=== PATIENT | male | born 1985 | race Two or more races ===

== ENCOUNTER 2021-07-01 16:51 | Inpatient (IN) | payer OTHER ==
[~2021-07-01] VITALS: Ht 172.7 cm; Wt 52.6 kg
[2021-07-01] MEDS: HEPARIN SODIUM, PORCINE 5000 UNITS/1 ML VIAL SQ SCH ×3 (09:00→23:35)
[2021-07-01 17:20] LABS: BASOPHILS # (AUTO) 0.1 K/uL (0.0-0.2); BASOPHILS % (AUTO) 0.6 % (0.0-2.0); EOSINOPHILS % (AUTO) 0.6 % (0.0-6.0); HEMATOCRIT 31 % (39-51); HEMOGLOBIN 9.6 g/dL (13.5-17.5); LYMPHOCYTES # (AUTO) 1.3 K/uL (0.8-4.8); LYMPHOCYTES % (AUTO) 6.7 % (20.0-44.0); MEAN CORPUSCULAR HGB CONC 31 g/dl (31.0-36.0); MEAN CORPUSCULAR VOLUME 73 fL (80-96); MONOCYTES # (AUTO) 3.1 K/uL (0.1-1.30); MONOCYTES % (AUTO) 16.1 % (2.0-12.0); NEUTROPHILS # (AUTO) 14.4 K/uL (1.8-8.9); PLATELET COUNT (AUTO) 684 K/uL (150-450); RED BLOOD CELL COUNT(AUTO) 4.28 MIL/uL (4.5-6.0)
--- NOTE | 2021-07-01 17:29 | NUR ---
[id number] FOR TACHYCARDIA TACHYPNEA 20 MINS ON DIALYSIS. ON TRACH, CONNECTED TO THE MONITOR AND PULSE OX. KEPT COMFORTABLE, WILL CONTINUE TO MONITOR ACCORDINGLY.
[2021-07-01] MEDS ORDERED: IV NS 0.9% 1,000 ML BAG IV ONE (17:30)
[2021-07-01 17:36] LABS: CARBON DIOXIDE 22 mmol/L (21-32); CHLORIDE 101 mmol/L (98-107); GLUCOSE 104 mg/dL (74-106); POTASSIUM 4.4 mmol/L (3.5-5.1); SODIUM SERUM 140 mmol/L (136-145); UREA NITROGEN, BLOOD 72 mg/dL (7-18)
[2021-07-01 17:37] LABS: CREATININE 8.1 mg/dL (0.6-1.3)
[2021-07-01] MEDS ORDERED: VALP250S4 GT (17:37)
[2021-07-01] MEDS ORDERED: GUAN1TAB GT (17:37)
[2021-07-01] MEDS ORDERED: DOCU50LI GT (17:37)
[2021-07-01] MEDS ORDERED: SEVE0.8P GT (17:37)
[2021-07-01] MEDS ORDERED: CHLO473M5 MM (17:37)
[2021-07-01] MEDS ORDERED: PANT40SU2 GT (17:37)
[2021-07-01] MEDS ORDERED: QUET25TA GT (17:37)
[2021-07-01] MEDS ORDERED: PROP20TA7 GT (17:37)
[2021-07-01] MEDS ORDERED: NUT.237L67 GT (17:37)
[2021-07-01] MEDS ORDERED: MENT71OI2 TP (17:37)
[2021-07-01] MEDS ORDERED: ACET-868 GT (17:37)
[2021-07-01 17:42] LABS: ALANINE AMINOTRANSFERASE 18 U/L (12-78); ALBUMIN 2.6 g/dL (3.4-5.0); ALKALINE PHOSPHATASE 137 U/L (46-116); ASPARTATE AMINOTRANSFERASE 31 U/L (15-37); BILIRUBIN,DIRECT 0.2 mg/dL (0.0-0.2); BILIRUBIN,TOTAL 0.5 mg/dL (0.2-1.0); TOTAL PROTEIN, SERUM 9.7 g/dL (6.4-8.2)
--- NOTE | 2021-07-01 17:44 | NUR ---
RT PT CAME IN VIA EMS BEING BAGGED FROM HEMODIALYSIS FOR TACHYCARDIA, TACHYPNEA, SOB PER REPORT, PT TRACHED SHILEY 8 DCT WILL HAS SUTURES CUFF INFLATED PLACED ON [facility] VENT AC 20 500 +5 40% VENT PLUGGED IN RED OUTLET BAG AND MASK AT [facility] WILL CONT TO MONITOR Addendum: 07/01/21 at 1748 by JANET OROZCO RT Amended: Links added.
[2021-07-01] MEDS ORDERED: PIPERACILLIN /TAZOBACTAM 3.375 G in IV D5W 50 ML IV ONE (18:00)
[2021-07-01] MEDS ORDERED: VANCOMYCIN 1 GM in IV D5W 250 ML IV ONE (18:00)
[2021-07-01 18:29] LABS: BILIRUBIN,URINE Negative (NEGATIVE); COLOR,URINE YELLOW (YELLOW); LEUKOCYTE ESTERASE ,URINE Trace (NEGATIVE); NITRITE, URINE Negative (NEGATIVE); PROTEIN,URINE 100 mg/dl (NEGATIVE); UGLUCOSE Negative (NEGATIVE); UROBILINOGEN,URINE 0.2 EU/dL (0.2)
[2021-07-01 18:30] LABS: BACTERIA,URINE Few /HPF (None Seen); SQUAMOUS EPITHELIAL CELL,UR Few /HPF (None Seen)
[2021-07-01 18:43] LABS: BAND % (MANUAL) 2 % (0.0-5.0); LYMPHOCYTES % (MANUAL) 4 % (16-48); MONOCYTES % (MANUAL) 11 % (0-11.0); NEUTROPHILS % (MANUAL) 83 (42-76)
[2021-07-01] MEDS ORDERED: VANCOMYCIN HCL 1.25 GM in IV D5W 260 ML IV SCH (19:00)
[2021-07-01] MEDS ORDERED: DEXTROSE 50%-WATER 50 ML DISP.SYRIN IV PRN (19:00)
[2021-07-01] MEDS ORDERED: ONDANSETRON HCL/PF 4 MG/2 ML VIAL IVP PRN (19:00)
[2021-07-01] MEDS ORDERED: hydrALAZINE HCL IV 20 MG VIAL IV PRN (19:00)
[2021-07-01] MEDS ORDERED: ENOXAPARIN SODIUM 40 MG/0.4 ML DISP.SYRIN SQ SCH (19:00)
[2021-07-01] MEDS ORDERED: NEPRO VAN 237 ML CAN GT SCH (19:00)
--- NOTE | 2021-07-01 19:26 | NUR ---
ROOM 117-1
--- NOTE | 2021-07-01 19:45 | NUR ---
COVID SWAB SENT TO LAB
--- NOTE | 2021-07-01 20:09 | NUR ---
TAKEN TO CT
--- NOTE | 2021-07-01 20:22 | NUR ---
RN NOTES RECEIVED ER ADMISSION REPORT FROM IZABELLA GONZALEZ. ALL PERTINENT ADMISSION INFO REGARDING PT NOTED. WILL WAIT FOR PT TO BE TRANSFERRED TO UNIT AND ADDRESS NEEDS ACCORDINGLY. WHIZZER OPERATOR MADE AWARE.
--- NOTE | 2021-07-01 20:24 | NUR ---
report given to aiden stanley for napoleon
[2021-07-01 20:36] LABS: FERRITIN 273 ng/mL (8-388); IRON, SERUM 25 ug/dl (50-175)
[2021-07-01] MEDS ORDERED: GUANFACINE HCL 1 MG TABLET PO SCH (21:00)
--- NOTE | 2021-07-01 21:15 | NUR ---
CALLED BETHEL TO HAVE IMAGES READ
[2021-07-01] MEDS: BLOOD SUGAR DIAGNOSTIC 1 EACH STRIP IN SCH (22:00)
--- NOTE | 2021-07-01 22:34 | NUR ---
PATIENT BEING TRANSFERRED TO [facility] VIA ACLS AND RT
--- NOTE | 2021-07-01 22:38 | NUR ---
RN NOTES RECEIVED PT FROM ER VIA FAISALRJODI ACCOMPANIED BY 2 ER STAFF AND TRANSFERRED TO BED VIA 2 PERSON ASSIST. PT IS A/OX0; ON MECHANICAL VENT; SETTINGS PRESCRIBED WITH RESPIRATIONS EVEN AND UNLABORED. COMPREHENSIVE PHYSICAL ASSESSMENT AND PATIENT CARE DONE. CALL LIGHT WITHIN REACH, SAFETY MEASURES AND ISOLATION PRECAUTION IN PLACE, WILL CONTINUE MONITOR AND ASSESS THROUGHOUT THE SHIFT. WILL CARRY OUT MD ORDERS ACCORDINGLY. CSR TECHNICIAN MADE AWARE.
[2021-07-01 22:40] VITALS: BP 131/88
--- NOTE | 2021-07-01 22:40 | NUR ---
RN NOTES NOTED PT'S TEMP IS AT 100.1@2240 (INITIAL VS); PRN MEDICATION GIVEN AND COOLING MEASURES RENDERED. PHYS ASST MADE AWARE. WILL CONTINUE TO MONITOR AND ASSESS THROUGHOUT THE SHIFT.
[2021-07-01] MEDS: CHLORHEXIDINE GLUCONATE 15 ML UDC MM SCH (23:03)
[2021-07-01] MEDS: PROPRANOLOL HCL 10 MG TABLET GT SCH (23:04)
[2021-07-01] MEDS: ACETAMINOPHEN 325 MG TABLET PO PRN (23:07)
--- NOTE | 2021-07-01 23:15 | NUR ---
RN NOTES @2300 PT'S TEMP WENT DOWN TO 99.1. WILL CONTINUE COOLING MEASURES AND MONITOR THROUGHOUT THE SHIFT.
[2021-07-01] MEDS: INSULIN REGULAR, HUMAN 100 UNIT/ML 3 ML VIAL SQ PRN (23:21)
--- NOTE | 2021-07-01 23:35 | NUR ---
RN NOTES HEPARIN DUE @0900AM NO COVERAGE; AND ONE SCHEDULED @2100 GIVEN LATE DUE TO PT JUST CAME IN FOR ADMISSION. TRANSIT DRIVER MADE AWARE.
[2021-07-02] VITALS: BP 128/85
--- NOTE | 2021-07-02 00:10 | NUR ---
RN NOTES CALLED [facility] @[phone], SPOKE WITH AMBER STEINER FOR THE FOLLOWING, CODE STATUS: FULL CODE, FEEDING: NEPRO@40CC/HR. COVID SHOT VACCINATED, WAS PREVIOUSLY ADMITTED IN [facility]. ALSO TRID VERIFY IF PT HAD SHOTS FOR PNA AND FLU, SHE SAID SHE WILL CHECK AND SEND SOME MEDICAL RECORDS. FAX NUMBER PROVIDED. AWAITING FOR PT'S MEDICAL RECORDS. FRONT OFFICE ASSOCIATE MADE AWARE. WILL NOTIFY ALYSSA PATINO FOR PT'S DIET IN THE FACILITY AND SECURE ORDER. @0015 ALYSSA PATINO NOTIFIED REGARDING PT'S FEEDING DIET NEPRO 40CC/HR. AWAITING RESPONSE. WILL F/U IN THE MORNING.
[2021-07-02 03:29] LABS: BASOPHILS # (AUTO) 0.1 K/uL (0.0-0.2); EOSINOPHILS % (AUTO) 0.7 % (0.0-6.0); HEMATOCRIT 28 % (39-51); HEMOGLOBIN 8.8 g/dL (13.5-17.5); LYMPHOCYTES # (AUTO) 0.9 K/uL (0.8-4.8); LYMPHOCYTES % (AUTO) 6.3 % (20.0-44.0); MEAN CORPUSCULAR HGB CONC 32 g/dl (31.0-36.0); MEAN CORPUSCULAR VOLUME 73 fL (80-96); MONOCYTES # (AUTO) 2.6 K/uL (0.1-1.30); MONOCYTES % (AUTO) 17.4 % (2.0-12.0); NEUTROPHILS # (AUTO) 11.3 K/uL (1.8-8.9); NEUTROPHILS % (AUTO) 74.6 % (43.0-81.0); PLATELET COUNT (AUTO) 562 K/uL (150-450); WHITE BLOOD COUNT (AUTO) 15.1 K/uL (4.3-11.0)
[2021-07-02 03:43] LABS: ALBUMIN 2.3 g/dL (3.4-5.0); BILIRUBIN,TOTAL 0.5 mg/dL (0.2-1.0); CALCIUM, SERUM 8.5 mg/dL (8.5-10.1); MAGNESIUM 3.1 mg/dL (1.8-2.4); PHOSPHORUS 7.2 mg/dL (2.5-4.9); POTASSIUM 4.5 mmol/L (3.5-5.1); TOTAL PROTEIN, SERUM 8.6 g/dL (6.4-8.2)
[2021-07-02 03:48] LABS: CREATININE 8.9 mg/dL (0.6-1.3)
[2021-07-02 04:00] VITALS: BP 135/91
--- NOTE | 2021-07-02 04:00 | NUR ---
RN NOTES NO NOTED CHANGES IN PATIENT CONDITION AT THIS TIME; NO SIGNS OF ACUTE RESPIRATORY DISTRESS. AM PATIENT CARE RENDERED. PLATER APPRENTICE MADE AWARE. WILL CONTINUE TO MONITOR AND REASSESS FOR ANY CHANGES THROUGHOUT THE SHIFT.
[2021-07-02 04:18] LABS: BAND % (MANUAL) 2 % (0.0-5.0); LYMPHOCYTES % (MANUAL) 7 % (16-48); METAMYELOCYTES % 1 % (0-0); MONOCYTES % (MANUAL) 10 % (0-11.0); NEUTROPHILS % (MANUAL) 80 (42-76)
--- NOTE | 2021-07-02 04:31 | NUR ---
IZABELLA NOTES NOTED PT'S TEMP IS AT 100.9@0400; PRN MEDICATION GIVEN AND COOLING MEASURES RENDERED. MACKENZIE PAREKH MADE AWARE. WILL CONTINUE TO MONITOR AND ASSESS THROUGHOUT THE SHIFT. Addendum: 07/02/21 at 0530 by CRISTOFER JOHN RN @0530 PT TEMP IS AT 99.7; WILL CONTINUE TO MONITOR AND PROVIDE COOLING MEASURES. MACKENZIE PAREKH MADE AWARE.
[2021-07-02] MEDS: ACETAMINOPHEN 325 MG TABLET PO PRN ×2 (05:10→21:35)
[2021-07-02] MEDS: PROPRANOLOL HCL 10 MG TABLET GT SCH ×3 (05:27→17:44)
--- NOTE | 2021-07-02 07:00 | NUR ---
RN CLOSING NOTE: PATIENT REMAINS IN ROOM IN NO SIGNS OF RESPIRATORY DISTRESS, PATIENT STILL ON MECH VENT; SETTINGS PRESCRIBED;TOLERATING WELL SATURATING @ >95% SP02. SAFETY MEASURES IMPLEMENTED, BED IN LOWEST POSITION, LOCKED, SIDE RAILS UP, CALL LIGHT WITHIN REACH. ALL NEEDS AND ORDERS ADDRESSED DURING THE SHIFT. IV ACCESS MAINTAINED INTACT, SECURED AND FLUSHING WELL. ALL DUE MEDS GIVEN ORDERED & SCHEDULED ; PATIENT TOLERATED WELL. PATIENT KEPT CLEAN AND COMFORTABLE WITHIN THE SHIFT.WILL ENDORSE TO AM SHIFT RN TO FOLLOW UP WITH HOSPITALIST TO SECURE FEEDING DIET ORDER FOR NEPRO@40CC/HR. PATIENT ENDORSED TO INCOMING SHIFT RN WITH STABLE VITAL SIGN AND FOR CONTINUITY OF CARE
--- NOTE | 2021-07-02 07:30 | NUR ---
JOHNNIE RN NOTES RECEIVED PT IN BED, EYES OPEN, BLANK STARE, A/OX0; UNABLE TO FOLLOW COMMAND, SH 7 TO ON MECHANICAL VENT; SETTINGS PRESCRIBED AC 20 TV 500 FIO2 40 P 5, WITH RESPIRATIONS EVEN AND UNLABORED. SR HR 77 ON MONITOR, RAC 18G JOVON MIDLINE 18G BOTH FLUSHES WELL, SITE CLEAR. PERMACATH RCW CDI DRESSING. CONDOM CATH IN PLACE WITH CLEAN YEALLOW URINE OUTPUT, GT CLAMPED, CHECKED FOR PLACEMENT 0 RESIDUAL. SEE NURSING FLOWSHEET FOR SKIN ISSUES, CALL LIGHT WITHIN REACH, SAFETY MEASURES AND ISOLATION PRECAUTION IN PLACE, WILL CONTINUE MONITOR AND ASSESS THROUGHOUT THE SHIFT. FOR HD TODAY
[2021-07-02 08:00] VITALS: BP 138/77
[2021-07-02] MEDS ORDERED: Z GUARD REMEDY 2 OZ OINT TP PRN (08:30)
[2021-07-02] MEDS ORDERED: EPOETIN ALFA-EPBX 4,000 UNIT/ML VIAL IV PRN (08:30)
--- NOTE | 2021-07-02 08:31 | NUR ---
WOUND CARE CONSULT: REVIEWED CHART, NURSING DOCUMENTATION AND PHOTOS WHICH INDICATE MULTIPLE WOUNDS, PRESENT ON ADMISSION. SURGICAL CONSULT CALLED TO DR PABLO ISAAC. RECOMMENDATIONS MADE FOR SKIN PROTECTION AND WOUND CARE. DISCUSSED WITH NURSING STAFF. FIRST STEP LOW AIRLOSS MATTRESS IS ON ORDER. MD IN AGREEMENT WITH PLAN OF CARE.
[2021-07-02] MEDS: BLOOD SUGAR DIAGNOSTIC 1 EACH STRIP IN SCH ×4 (08:37→22:47)
--- NOTE | 2021-07-02 09:30 | NUR ---
RN NOTES DUE MEDS GIVEN
[2021-07-02] MEDS: VALPROIC ACID 250 MG/5 ML UDC GT SCH ×3 (09:35→17:44)
[2021-07-02] MEDS: PANTOPRAZOLE 40 MG/PACK PACK GT SCH (09:35)
[2021-07-02] MEDS: DOCUSATE SODIUM LIQ 100 MG/10 ML UDC GT SCH (09:35)
[2021-07-02] MEDS: QUETIAPINE FUMARATE 25 MG TABLET GT SCH ×2 (09:35→17:45)
[2021-07-02] MEDS: CHLORHEXIDINE GLUCONATE 15 ML UDC MM SCH ×2 (09:35→20:47)
[2021-07-02] MEDS: HEPARIN SODIUM, PORCINE 5000 UNITS/1 ML VIAL SQ SCH ×2 (09:36→20:47)
[2021-07-02] MEDS: SEVELAMER CARBONATE 800 MG POWD.PACK GT SCH ×3 (09:36→17:45)
[2021-07-02] MEDS: Z GUARD REMEDY 2 OZ OINT TP SCH (09:45)
[2021-07-02] MEDS: DAKINS QUARTER STRENGTH (0.125%) 480 ML BOTTLE TOP SCH (09:46)
[2021-07-02] MEDS: CLOTRIMAZOLE 1% 15 GM TUBE TP SCH ×2 (09:46→17:45)
[2021-07-02 11:02] LABS: BASOPHILS # (AUTO) 0.1 K/uL (0.0-0.2); BASOPHILS % (AUTO) 1.1 % (0.0-2.0); EOSINOPHILS % (AUTO) 1.1 % (0.0-6.0); HEMATOCRIT 27 % (39-51); HEMOGLOBIN 8.6 g/dL (13.5-17.5); LYMPHOCYTES # (AUTO) 1.2 K/uL (0.8-4.8); LYMPHOCYTES % (AUTO) 9.7 % (20.0-44.0); MEAN CORPUSCULAR HGB CONC 32 g/dl (31.0-36.0); MEAN CORPUSCULAR VOLUME 73 fL (80-96); MONOCYTES % (AUTO) 16.3 % (2.0-12.0); NEUTROPHILS # (AUTO) 8.7 K/uL (1.8-8.9); NEUTROPHILS % (AUTO) 71.8 % (43.0-81.0); PLATELET COUNT (AUTO) 535 K/uL (150-450); RED BLOOD CELL COUNT(AUTO) 3.69 MIL/uL (4.5-6.0); WHITE BLOOD COUNT (AUTO) 12.1 K/uL (4.3-11.0)
[2021-07-02 12:00] VITALS: BP 120/75
[2021-07-02 14:49] LABS: LYMPHOCYTES % (MANUAL) 19 % (16-48); MONOCYTES % (MANUAL) 14 % (0-11.0); NEUTROPHILS % (MANUAL) 67 (42-76)
[2021-07-02 16:00] VITALS: BP 114/75
--- NOTE | 2021-07-02 17:00 | NUR ---
RN NOTES VANCOMYCIN IV POST HD NOT GIVEN VANCO T 28 . PHARMACY IS AWARE.
[2021-07-02 17:24] LABS: BASOPHILS # (AUTO) 0.1 K/uL (0.0-0.2); BASOPHILS % (AUTO) 0.8 % (0.0-2.0); EOSINOPHILS % (AUTO) 1.2 % (0.0-6.0); HEMATOCRIT 28 % (39-51); HEMOGLOBIN 8.7 g/dL (13.5-17.5); LYMPHOCYTES # (AUTO) 1.1 K/uL (0.8-4.8); LYMPHOCYTES % (AUTO) 8.5 % (20.0-44.0); MEAN CORPUSCULAR HGB CONC 31 g/dl (31.0-36.0); MEAN CORPUSCULAR VOLUME 73 fL (80-96); MONOCYTES # (AUTO) 2.2 K/uL (0.1-1.30); MONOCYTES % (AUTO) 17.5 % (2.0-12.0); NEUTROPHILS # (AUTO) 9.2 K/uL (1.8-8.9); PLATELET COUNT (AUTO) 539 K/uL (150-450); RED BLOOD CELL COUNT(AUTO) 3.81 MIL/uL (4.5-6.0); WHITE BLOOD COUNT (AUTO) 12.7 K/uL (4.3-11.0)
[2021-07-02] MEDS: CEFEPIME 1 GM in IV D5W 50 ML IV PRN (17:46)
[2021-07-02] MEDS ORDERED: IV NS 0.9% 250 ML IV PRN (18:00)
--- NOTE | 2021-07-02 18:50 | NUR ---
RN CLOSING NOTES PT OBTUNDED ON VENT SETTINGS TRACH SH7, AC 20 TV 500 FIO2 40 P 5, WITH RESPIRATIONS EVEN AND UNLABORED. SR HR 84 ON MONITOR,NO SIGNS OF RESP DISTRESS. RAC 18G JOVON MIDLINE 18G BOTH FLUSHES WELL, SITE CLEAR. PERMACATH RCW CDI DRESSING. CONDOM CATH IN PLACE 50 ML OUTPUT, GTF NEPRO AT 40 ML/HR. CHECKED FOR PLACEMENT 0 RESIDUAL. PM CARE DONE, PRESSRIBED WOUND CARE DONE. CALL LIGHT WITHIN REACH, SAFETY MEASURES AND ISOLATION PRECAUTION IN PLACE, ALL PT SAFETY PRECAUTIONS IN PLACE. WILL ENDORSE TO PUMP TECHNICIAN NURSE FOR JOSE L.
--- NOTE | 2021-07-02 19:40 | NUR ---
RN NOTE PT RECEIVED IN BED. PT IS TRACH/VENT WITH SETTINGS AT S#7, AC:20, TV:500, FIO2: 40, AND PEEP 5. TOLERATING VENT SETTINGS WELL WITH OXYGEN SATURATION 100%. PT IS NON-VERBAL. ON TELE MONITOR SHOWING NSR. CONDOM CATH NOTED. G-TUBE FLUSHED WITH NEPRO RUNNING AT 40 ML/HR. PT TOLERATING TUBE FEEDING WELL. IV ACCESS NOTED ON RIGHT AC #18 AND LEFT UPPER ARM ML. LINES FLUSHED, PATENT, AND INTACT WITH NO SIGNS OF INFILTRATION. RIGHT PERMACATH NOTED WELL. ALL SAFETY MEASURES IMPLEMENTED. BED LOCKED AND IN LOWEST POSITION. SIDE RAILS UP. WILL CONTINUE TO MONITOR AND ASSESS FOR ANY CHANGES THROUGHOUT SHIFT.
[2021-07-02 20:00] VITALS: BP 167/104
[2021-07-02] MEDS: LABETALOL HCL IV 100MG VIAL IV PRN (21:35)
--- NOTE | 2021-07-02 21:36 | NUR ---
RN NOTE PT HAS MILD FEVER OF 100.1 AND BP OF 171/101. TYLENOL ADMINISTERED AND COOLING MEASURES PROVIDED. LABETALOL IVP ADMINISTERED. WILL CONTINUE TO MONITOR AND RE-ASSESS.
--- NOTE | 2021-07-02 22:30 | NUR ---
RN NOTE PT BLOOD PRESSURE NOW 132/70 AND TEMPERATURE IS 98.5. WILL CONTINUE TO MONITOR AND ASSESS FOR ANY CHANGES.
[2021-07-02] MEDS ORDERED: NEPRO 1,000 ML BOTTLE GT PRN (23:00)
[2021-07-03] VITALS: BP 161/96
[2021-07-03] MEDS: PROPRANOLOL HCL 10 MG TABLET GT SCH ×4 (00:06→17:58)
[2021-07-03 03:24] LABS: BASOPHILS # (AUTO) 0.1 K/uL (0.0-0.2); BASOPHILS % (AUTO) 0.4 % (0.0-2.0); EOSINOPHILS % (AUTO) 1.5 % (0.0-6.0); HEMATOCRIT 29 % (39-51); HEMOGLOBIN 9.1 g/dL (13.5-17.5); LYMPHOCYTES # (AUTO) 1.3 K/uL (0.8-4.8); MEAN CORPUSCULAR HGB CONC 32 g/dl (31.0-36.0); MEAN CORPUSCULAR VOLUME 73 fL (80-96); MONOCYTES # (AUTO) 2.8 K/uL (0.1-1.30); MONOCYTES % (AUTO) 17.6 % (2.0-12.0); NEUTROPHILS # (AUTO) 11.6 K/uL (1.8-8.9); NEUTROPHILS % (AUTO) 72.5 % (43.0-81.0); PLATELET COUNT (AUTO) 534 K/uL (150-450); RED BLOOD CELL COUNT(AUTO) 3.95 MIL/uL (4.5-6.0); WHITE BLOOD COUNT (AUTO) 16.1 K/uL (4.3-11.0)
[2021-07-03 03:39] LABS: CALCIUM, SERUM 8.4 mg/dL (8.5-10.1); CREATININE 5.2 mg/dL (0.6-1.3); MAGNESIUM 2.4 mg/dL (1.8-2.4); PHOSPHORUS 4.2 mg/dL (2.5-4.9)
[2021-07-03 04:00] VITALS: BP 146/89
--- NOTE | 2021-07-03 06:49 | NUR ---
RN NOTE PT IS TRACH/VENT WITH SETTINGS AT S#7, AC:20, TV:500, FIO2: 40, AND PEEP 5. TOLERATING VENT SETTINGS WELL WITH OXYGEN SATURATION 100%. NEPRO RUNNING AT 40ML/HR. PT TOLERATING TUBE FEEDING WELL. IV ACCESS NOTED ON RIGHT AC #18 AND LEFT UPPER ARM ML. LINES FLUSHED, PATENT, AND INTACT WITH NO SIGNS OF INFILTRATION. ALL DUE MEDS GIVEN ORDERED. PT KEPT CLEAN AND COMFORTABLE. ALL SAFETY MEASURES IMPLEMENTED. BED LOCKED AND IN LOWEST POSITION. SIDE RAILS UP. WILL ENDORSE TO MORNING SHIFT RN FOR JOSE L.
--- NOTE | 2021-07-03 07:20 | NUR ---
RN NOTE PT WITH EYES CLOSED, ON MECHANICAL VENTILATOR, TOLERATED SETTINGS WELL, NO SOB/ACUTE DISTRESS NOTED, AFEBRILE AT THIS TIME, NSR IN TELE MONITOR, HR IN 90S,RIGHT AC #18 AND LEFT UPPER ARM ML, PATENT AND INTACT, RCW HE CATH IN PLACED, GT IN PLACE, NEPRO RUNNING AT 40ML/HR, INFUSING WELL AND PT TOLERATED WELL, PT KEPT CLEAN AND COMFORTABLE, ALL SAFETY MEASURES IMPLEMENTED., BED LOCKED AND IN LOWEST POSITION, SIDE RAILS UP X2, WILL CONTINUE TO MONITOR CLOSELY.
[2021-07-03 08:10] VITALS: BP 136/80
[2021-07-03] MEDS: BLOOD SUGAR DIAGNOSTIC 1 EACH STRIP IN SCH ×4 (08:19→21:25)
[2021-07-03] MEDS: CHLORHEXIDINE GLUCONATE 15 ML UDC MM SCH ×2 (08:43→21:05)
[2021-07-03] MEDS: VALPROIC ACID 250 MG/5 ML UDC GT SCH ×3 (08:44→17:56)
[2021-07-03] MEDS: DOCUSATE SODIUM LIQ 100 MG/10 ML UDC GT SCH (08:44)
[2021-07-03] MEDS: PANTOPRAZOLE 40 MG/PACK PACK GT SCH (08:44)
[2021-07-03] MEDS: QUETIAPINE FUMARATE 25 MG TABLET GT SCH ×2 (08:44→17:57)
[2021-07-03] MEDS: DAKINS QUARTER STRENGTH (0.125%) 480 ML BOTTLE TOP SCH (08:45)
[2021-07-03] MEDS: CLOTRIMAZOLE 1% 15 GM TUBE TP SCH ×2 (08:47→17:57)
[2021-07-03] MEDS: Z GUARD REMEDY 2 OZ OINT TP SCH (08:47)
[2021-07-03] MEDS: SEVELAMER CARBONATE 800 MG POWD.PACK GT SCH ×3 (09:00→17:57)
[2021-07-03] MEDS: HEPARIN SODIUM, PORCINE 5000 UNITS/1 ML VIAL SQ SCH ×2 (09:23→21:07)
[2021-07-03 11:43] LABS: BASOPHILS # (AUTO) 0.1 K/uL (0.0-0.2); BASOPHILS % (AUTO) 0.9 % (0.0-2.0); EOSINOPHILS % (AUTO) 1.2 % (0.0-6.0); HEMATOCRIT 27 % (39-51); HEMOGLOBIN 8.7 g/dL (13.5-17.5); LYMPHOCYTES # (AUTO) 1.2 K/uL (0.8-4.8); LYMPHOCYTES % (AUTO) 10.2 % (20.0-44.0); MEAN CORPUSCULAR HGB CONC 32 g/dl (31.0-36.0); MEAN CORPUSCULAR VOLUME 73 fL (80-96); MONOCYTES % (AUTO) 17.1 % (2.0-12.0); NEUTROPHILS # (AUTO) 8.4 K/uL (1.8-8.9); NEUTROPHILS % (AUTO) 70.6 % (43.0-81.0); PLATELET COUNT (AUTO) 515 K/uL (150-450); RED BLOOD CELL COUNT(AUTO) 3.76 MIL/uL (4.5-6.0); WHITE BLOOD COUNT (AUTO) 11.9 K/uL (4.3-11.0)
[2021-07-03 12:00] LABS: EOSINOPHILS % (MANUAL) 1 % (0-4); LYMPHOCYTES % (MANUAL) 11 % (16-48); MONOCYTES % (MANUAL) 13 % (0-11.0); NEUTROPHILS % (MANUAL) 75 (42-76)
[2021-07-03] MEDS: INSULIN REGULAR, HUMAN 100 UNIT/ML 3 ML VIAL SQ PRN ×2 (12:02→17:54)
[2021-07-03 13:54] VITALS: BP 120/80
[2021-07-03] MEDS ORDERED: IRON SUCROSE COMPLEX 100 MG in IV NS 0.9% 100 ML IV SCH (14:00)
[2021-07-03 16:00] VITALS: BP 131/79
[2021-07-03] MEDS: FERRLICET 125MG in 100 ML NS IVPB IV SCH (17:58)
--- NOTE | 2021-07-03 19:04 | NUR ---
RN CLOSING NOTES, PATIENT ON VENTILATOR TOLERATING SETTINGS WELL, NO SOB/ACUTE DISTRESS NOTED, WILL HAVE HD TOMORROW, ALL SAFETY PRECAUTIONS IMPLEMENTED, DRY AND CLEAN, WILL ENDORSE CONTINUITY OF CARE TO ONCOMING NURSE.
--- NOTE | 2021-07-03 19:40 | NUR ---
RN NOTE PT RECEIVED IN BED. PT IS TRACH/VENT WITH SETTINGS AT S#7, AC:20, TV:500, FIO2: 40, AND PEEP 5. TOLERATING VENT SETTINGS WELL. PT IS NON-VERBAL. ON TELE MONITOR SHOWING NSR. G-TUBE FLUSHED WITH NEPRO RUNNING AT 40 ML/HR. PT TOLERATING TUBE FEEDING WELL WITH NO RESIDUAL NOTED. IV ACCESS ON RIGHT AC #18 AND LEFT UPPER ARM ML. LINES FLUSHED, PATENT, AND INTACT WITH NO SIGNS OF INFILTRATION. RIGHT PERMACATH NOTED. ALL SAFETY MEASURES IMPLEMENTED. BED LOCKED AND IN LOWEST POSITION. SIDE RAILS UP. WILL CONTINUE TO MONITOR AND ASSESS FOR ANY CHANGES THROUGHOUT SHIFT.
[2021-07-03 20:00] VITALS: BP 111/76
[2021-07-03 20:38] LABS: BASOPHILS # (AUTO) 0.1 K/uL (0.0-0.2); BASOPHILS % (AUTO) 1.1 % (0.0-2.0); EOSINOPHILS % (AUTO) 1.6 % (0.0-6.0); HEMATOCRIT 26 % (39-51); HEMOGLOBIN 8.2 g/dL (13.5-17.5); LYMPHOCYTES # (AUTO) 1.2 K/uL (0.8-4.8); MEAN CORPUSCULAR HGB CONC 32 g/dl (31.0-36.0); MEAN CORPUSCULAR VOLUME 73 fL (80-96); MONOCYTES # (AUTO) 1.9 K/uL (0.1-1.30); MONOCYTES % (AUTO) 17.3 % (2.0-12.0); NEUTROPHILS # (AUTO) 7.7 K/uL (1.8-8.9); PLATELET COUNT (AUTO) 509 K/uL (150-450); RED BLOOD CELL COUNT(AUTO) 3.57 MIL/uL (4.5-6.0); WHITE BLOOD COUNT (AUTO) 11.1 K/uL (4.3-11.0)
[2021-07-03 20:57] LABS: BAND % (MANUAL) 1 % (0.0-5.0); EOSINOPHILS % (MANUAL) 2 % (0-4); LYMPHOCYTES % (MANUAL) 15 % (16-48); MONOCYTES % (MANUAL) 18 % (0-11.0); NEUTROPHILS % (MANUAL) 64 (42-76)
[2021-07-04] VITALS: BP 136/92
[2021-07-04] MEDS: PROPRANOLOL HCL 10 MG TABLET GT SCH ×4 (00:12→17:35)
[2021-07-04 03:20] LABS: BASOPHILS # (AUTO) 0.1 K/uL (0.0-0.2); BASOPHILS % (AUTO) 1.1 % (0.0-2.0); EOSINOPHILS % (AUTO) 2.1 % (0.0-6.0); HEMATOCRIT 30 % (39-51); HEMOGLOBIN 9.4 g/dL (13.5-17.5); LYMPHOCYTES # (AUTO) 1.4 K/uL (0.8-4.8); LYMPHOCYTES % (AUTO) 11.8 % (20.0-44.0); MEAN CORPUSCULAR HGB CONC 32 g/dl (31.0-36.0); MEAN CORPUSCULAR VOLUME 73 fL (80-96); MONOCYTES # (AUTO) 1.9 K/uL (0.1-1.30); MONOCYTES % (AUTO) 16.3 % (2.0-12.0); NEUTROPHILS # (AUTO) 8.1 K/uL (1.8-8.9); NEUTROPHILS % (AUTO) 68.7 % (43.0-81.0); PLATELET COUNT (AUTO) 528 K/uL (150-450); WHITE BLOOD COUNT (AUTO) 11.7 K/uL (4.3-11.0)
[2021-07-04 03:30] LABS: CALCIUM, SERUM 8.5 mg/dL (8.5-10.1); MAGNESIUM 2.7 mg/dL (1.8-2.4); PHOSPHORUS 5.8 mg/dL (2.5-4.9); POTASSIUM 3.8 mmol/L (3.5-5.1)
[2021-07-04 04:00] VITALS: BP 133/75
[2021-07-04 05:12] LABS: EOSINOPHILS % (MANUAL) 4 % (0-4); LYMPHOCYTES % (MANUAL) 20 % (16-48); MONOCYTES % (MANUAL) 14 % (0-11.0); NEUTROPHILS % (MANUAL) 62 (42-76)
[2021-07-04] MEDS: NEPRO 1,000 ML BOTTLE GT SCH (05:51)
--- NOTE | 2021-07-04 06:56 | NUR ---
RN NOTE NO CHANGES IN PT CONDITION DURING SHIFT. PT DID NOT HAVE FEVER OR HIGH BP DURING SHIFT. PT IS TRACH/VENT WITH SETTINGS AT S#7, AC:20, TV:500, FIO2: 40, AND PEEP 5. TOLERATING VENT SETTINGS WELL WITH OXYGEN SATURATION 100%. NEPRO RUNNING AT 40ML/HR. PT TOLERATING TUBE FEEDING WELL. IV ACCESS NOTED ON RIGHT AC #18 AND LEFT UPPER ARM ML. LINES FLUSHED, PATENT, AND INTACT WITH NO SIGNS OF INFILTRATION. ALL DUE MEDS GIVEN ORDERED. PT KEPT CLEAN AND COMFORTABLE. ALL SAFETY MEASURES IMPLEMENTED. BED LOCKED AND IN LOWEST POSITION. SIDE RAILS UP. WILL ENDORSE TO MORNING SHIFT RN FOR JOSE L.
--- NOTE | 2021-07-04 07:30 | NUR ---
RN NOTES RECEIVED PT IN BED, EYES SLIGHTLY OPEN, A/OX0; UNABLE TO FOLLOW COMMAND, NON VERBAL, S# 7 TO MECHANICAL VENT; SETTINGS PRESCRIBED AC 20 TV 500 FIO2 40 P 5, TACHYPNEIC, TACHYCARDIC. RAC 18G JOVON MIDLINE 18G BOTH FLUSHES WELL, SITE CLEAR. PERMACATH RCW CDI DRESSING. GT CHECKED FOR PLACEMENT 0 RESIDUAL NEPHRO @40 ML/HR TOLERATING FEEDING WELL. SAFETY MEASURES IN PLACE, CALL LIGHT WITHIN REACH, BED LOCKED IN LOWEST POSITION WITH SIDE RAILS UP X3, WILL CONTINUE MONITOR.
[2021-07-04 08:00] VITALS: BP 146/83
[2021-07-04] MEDS: PANTOPRAZOLE 40 MG/PACK PACK GT SCH (09:09)
[2021-07-04] MEDS: QUETIAPINE FUMARATE 25 MG TABLET GT SCH ×2 (09:10→17:34)
[2021-07-04] MEDS: CHLORHEXIDINE GLUCONATE 15 ML UDC MM SCH ×2 (09:10→22:02)
[2021-07-04] MEDS: DOCUSATE SODIUM LIQ 100 MG/10 ML UDC GT SCH (09:10)
[2021-07-04] MEDS: SEVELAMER CARBONATE 800 MG POWD.PACK GT SCH ×3 (09:10→17:33)
[2021-07-04] MEDS: VALPROIC ACID 250 MG/5 ML UDC GT SCH ×3 (09:10→17:33)
[2021-07-04] MEDS: HEPARIN SODIUM, PORCINE 5000 UNITS/1 ML VIAL SQ SCH ×2 (09:12→22:22)
[2021-07-04] MEDS: CLOTRIMAZOLE 1% 15 GM TUBE TP SCH ×2 (09:13→17:35)
[2021-07-04] MEDS: Z GUARD REMEDY 2 OZ OINT TP SCH (09:13)
[2021-07-04] MEDS: DAKINS QUARTER STRENGTH (0.125%) 480 ML BOTTLE TOP SCH (09:13)
[2021-07-04] MEDS: INSULIN REGULAR, HUMAN 100 UNIT/ML 3 ML VIAL SQ PRN ×2 (09:47→18:00)
[2021-07-04] MEDS: BLOOD SUGAR DIAGNOSTIC 1 EACH STRIP IN SCH ×3 (09:47→18:00)
[2021-07-04] MEDS: ACETAMINOPHEN 325 MG TABLET PO PRN ×2 (11:17→17:34)
[2021-07-04 11:23] LABS: BASOPHILS # (AUTO) 0.1 K/uL (0.0-0.2); EOSINOPHILS % (AUTO) 1.6 % (0.0-6.0); HEMATOCRIT 27 % (39-51); HEMOGLOBIN 8.8 g/dL (13.5-17.5); LYMPHOCYTES # (AUTO) 0.7 K/uL (0.8-4.8); LYMPHOCYTES % (AUTO) 6.8 % (20.0-44.0); MEAN CORPUSCULAR HGB CONC 32 g/dl (31.0-36.0); MEAN CORPUSCULAR VOLUME 74 fL (80-96); MONOCYTES # (AUTO) 1.3 K/uL (0.1-1.30); MONOCYTES % (AUTO) 12.4 % (2.0-12.0); NEUTROPHILS # (AUTO) 8.4 K/uL (1.8-8.9); NEUTROPHILS % (AUTO) 78.2 % (43.0-81.0); PLATELET COUNT (AUTO) 476 K/uL (150-450); RED BLOOD CELL COUNT(AUTO) 3.73 MIL/uL (4.5-6.0); WHITE BLOOD COUNT (AUTO) 10.8 K/uL (4.3-11.0)
--- NOTE | 2021-07-04 11:30 | NUR ---
RN NOTES PT STARTED HD. VS STABLE.
[2021-07-04 12:00] VITALS: BP 93/56
--- NOTE | 2021-07-04 13:00 | NUR ---
RN NOTES HR WENT HIGH TO 140. PT NOT TOLERATING HD WELL. MD MADE AWARE. STOPPED HD WITH OUTPUT OF 750ML.
--- NOTE | 2021-07-04 13:15 | NUR ---
RN NOTES INFORMED MD ABOUT HIGH HR. FEVER. DIAPHORESIS AND SHIVERING. MD ORDERED TYLENOL AND COOLING MEASURES.
--- NOTE | 2021-07-04 13:30 | NUR ---
RN NOTES HD DONE. HR AT 130S. AWARE.
[2021-07-04 16:00] VITALS: BP 145/85
[2021-07-04] MEDS: FERRLICET 125MG in 100 ML NS IVPB IV SCH (18:26)
--- NOTE | 2021-07-04 19:25 | NUR ---
RN CLOSING NOTES PT TOLERATING VENT SETTINGS WELL. NO SOB/ACUTE DISTRESS NOTED. SAFETY PRECAUTIONS IMPLEMENTED. KEPT CLEAN AND COMFORTABLE. LATEST TEMP 99.8. ENDORSED TO NIGHT RN FOR JOSE L.
[2021-07-04 19:55] LABS: BASOPHILS # (AUTO) 0.1 K/uL (0.0-0.2); BASOPHILS % (AUTO) 1.1 % (0.0-2.0); EOSINOPHILS % (AUTO) 0.2 % (0.0-6.0); HEMATOCRIT 32 % (39-51); HEMOGLOBIN 10.2 g/dL (13.5-17.5); LYMPHOCYTES # (AUTO) 0.9 K/uL (0.8-4.8); LYMPHOCYTES % (AUTO) 6.7 % (20.0-44.0); MEAN CORPUSCULAR HGB CONC 32 g/dl (31.0-36.0); MEAN CORPUSCULAR VOLUME 74 fL (80-96); MONOCYTES % (AUTO) 7.9 % (2.0-12.0); NEUTROPHILS # (AUTO) 11.1 K/uL (1.8-8.9); NEUTROPHILS % (AUTO) 84.1 % (43.0-81.0); PLATELET COUNT (AUTO) 486 K/uL (150-450); RED BLOOD CELL COUNT(AUTO) 4.32 MIL/uL (4.5-6.0); WHITE BLOOD COUNT (AUTO) 13.2 K/uL (4.3-11.0)
[2021-07-04 20:00] VITALS: BP 121/69
[2021-07-04 20:57] LABS: LYMPHOCYTES % (MANUAL) 8 % (16-48); MONOCYTES % (MANUAL) 4 % (0-11.0); NEUTROPHILS % (MANUAL) 88 (42-76)
[2021-07-04] MEDS: CEFEPIME 1 GM in IV D5W 50 ML IV PRN (22:03)
[2021-07-04] MEDS: VANCOMYCIN 500 MG in IV D5W 100 ML IV PRN (22:03)
[2021-07-05] VITALS (7 sets, daily range): BP systolic 108–159; BP diastolic 67–102
[2021-07-05] MEDS: BLOOD SUGAR DIAGNOSTIC 1 EACH STRIP IN SCH ×5 (02:20→23:48)
[2021-07-05] MEDS: INSULIN REGULAR, HUMAN 100 UNIT/ML 3 ML VIAL SQ PRN ×3 (02:20→23:49)
[2021-07-05] MEDS: PROPRANOLOL HCL 10 MG TABLET GT SCH ×4 (02:21→17:23)
[2021-07-05] MEDS: ACETAMINOPHEN 325 MG TABLET PO PRN (03:47)
--- NOTE | 2021-07-05 06:11 | NUR ---
RN notes Resting comfortably in bed with no distress noted. Breathing even and unlabored. Vent setting well tolerated. No physical manifestation of pain or discomfort. Started temperature to elevate at about 04:00 at 99.6 to 101.2, HR 110 -120, RR 30-35. Cooling measures provided. Tylenol given x 1 and temperature went down to 98.2 after an hour. Kept clean and dry. Will endorse to next shift for continuity of care.
[2021-07-05 06:42] LABS: BASOPHILS # (AUTO) 0.2 K/uL (0.0-0.2); BASOPHILS % (AUTO) 1.1 % (0.0-2.0); EOSINOPHILS % (AUTO) 0.4 % (0.0-6.0); HEMATOCRIT 30 % (39-51); HEMOGLOBIN 9.5 g/dL (13.5-17.5); LYMPHOCYTES # (AUTO) 0.8 K/uL (0.8-4.8); LYMPHOCYTES % (AUTO) 5.9 % (20.0-44.0); MEAN CORPUSCULAR HGB CONC 32 g/dl (31.0-36.0); MEAN CORPUSCULAR VOLUME 73 fL (80-96); MONOCYTES # (AUTO) 1.5 K/uL (0.1-1.30); MONOCYTES % (AUTO) 10.3 % (2.0-12.0); NEUTROPHILS # (AUTO) 11.7 K/uL (1.8-8.9); NEUTROPHILS % (AUTO) 82.3 % (43.0-81.0); PLATELET COUNT (AUTO) 466 K/uL (150-450); RED BLOOD CELL COUNT(AUTO) 4.08 MIL/uL (4.5-6.0); WHITE BLOOD COUNT (AUTO) 14.3 K/uL (4.3-11.0)
[2021-07-05 06:48] LABS: CREATININE 5.1 mg/dL (0.6-1.3); MAGNESIUM 2.7 mg/dL (1.8-2.4); PHOSPHORUS 4.7 mg/dL (2.5-4.9); POTASSIUM 3.4 mmol/L (3.5-5.1)
--- NOTE | 2021-07-05 07:10 | NUR ---
RN NOTES RECEIVED PT ON BED, TRACH /VENT DEPENDENT , DOES NOT FOLLOW COMMAND, TRACH CARE DONE, ON TELE SR HR IN 70'S , TF AT 40CC/ HR RUNNING , IV SITES CLEAN, DRY AND INTACT, SR UP x3, CALL LIGHT WITHIN EASY REACH, BED LOCKED AND IN LOWEST POSITION, CONTINUE TO MONITOR.
[2021-07-05] MEDS: PANTOPRAZOLE 40 MG/PACK PACK GT SCH (08:47)
[2021-07-05] MEDS: DOCUSATE SODIUM LIQ 100 MG/10 ML UDC GT SCH (08:47)
[2021-07-05] MEDS: CHLORHEXIDINE GLUCONATE 15 ML UDC MM SCH ×2 (08:47→21:22)
[2021-07-05] MEDS: SEVELAMER CARBONATE 800 MG POWD.PACK GT SCH ×3 (08:48→17:22)
[2021-07-05] MEDS: HEPARIN SODIUM, PORCINE 5000 UNITS/1 ML VIAL SQ SCH ×2 (08:49→21:24)
[2021-07-05] MEDS: DAKINS QUARTER STRENGTH (0.125%) 480 ML BOTTLE TOP SCH (08:50)
[2021-07-05] MEDS: CLOTRIMAZOLE 1% 15 GM TUBE TP SCH ×2 (08:50→17:23)
[2021-07-05] MEDS: Z GUARD REMEDY 2 OZ OINT TP SCH (08:51)
[2021-07-05] MEDS: QUETIAPINE FUMARATE 25 MG TABLET GT SCH ×2 (08:51→17:00)
[2021-07-05] MEDS: VALPROIC ACID 250 MG/5 ML UDC GT SCH ×3 (08:56→17:21)
[2021-07-05 09:24] LABS: LYMPHOCYTES % (MANUAL) 6 % (16-48); MONOCYTES % (MANUAL) 11 % (0-11.0); NEUTROPHILS % (MANUAL) 83 (42-76)
--- NOTE | 2021-07-05 10:00 | NUR ---
RN NOTES K=3.4, DR ARVIN MARTINEZ, NO NEW ORDER GIVEN
--- NOTE | 2021-07-05 12:00 | NUR ---
RN NOTES TRACH AND ORAL CARE DONE. VSS CONTINUE TO MONITOR.
[2021-07-05] MEDS: FERRLICET 125MG in 100 ML NS IVPB IV SCH (17:30)
--- NOTE | 2021-07-05 18:00 | NUR ---
RN NOTES TOLERATING VENT SETTING WELL. FAMILY AT BEDSIDE.TOLERATING TUBE FEEDING WELL NO RESIDUAL NOTED. BED LOCKED IN LOWEST POSITION X3 RAILS.
--- NOTE | 2021-07-05 21:00 | NUR ---
RT pt received on mechanical vent with current vent settings. trached. vent plugged in to red outlet. ambu bag at bedside. spare trach at bedside. no sob, no resp distress. minimal secretions suctioned via trach. will continue to monitor.
[2021-07-05] MEDS: VANCOMYCIN 500 MG in IV D5W 100 ML IV PRN (21:25)
[2021-07-06] VITALS: BP 145/88
[2021-07-06] MEDS: PROPRANOLOL HCL 10 MG TABLET GT SCH ×4 (00:52→17:36)
[2021-07-06] MEDS: ACETAMINOPHEN 325 MG TABLET PO PRN ×2 (00:52→23:54)
[2021-07-06 04:00] VITALS: BP 186/109
[2021-07-06] MEDS: LABETALOL HCL IV 100MG VIAL IV PRN (04:54)
[2021-07-06] MEDS: BLOOD SUGAR DIAGNOSTIC 1 EACH STRIP IN SCH ×3 (05:38→17:31)
[2021-07-06] MEDS: INSULIN REGULAR, HUMAN 100 UNIT/ML 3 ML VIAL SQ PRN (05:39)
--- NOTE | 2021-07-06 06:36 | NUR ---
RN notes Patient in bed, obtunded. No eye contact. No pulmonary distress noted. Breathing even and unlabored. Vent setting well tolerated. At midnight patient's temperature went up to 100.8. Cooling measures provided. Tylenol 650mg given with help. At about 04:00, blood pressure went up to 186/109 while temp went down to 98, HR was elevated 110-130bpm. Hydrazaline administered with help. BP went down to 128/76 and HR went down to 118. Bed bath administered, noted with diaphoresis and shivering. Kept clean and dry. Will endorse to next shift for continuity of care.
[2021-07-06 06:52] LABS: BASOPHILS # (AUTO) 0.1 K/uL (0.0-0.2); EOSINOPHILS % (AUTO) 0.5 % (0.0-6.0); HEMATOCRIT 31 % (39-51); HEMOGLOBIN 9.8 g/dL (13.5-17.5); LYMPHOCYTES # (AUTO) 0.7 K/uL (0.8-4.8); LYMPHOCYTES % (AUTO) 5.1 % (20.0-44.0); MEAN CORPUSCULAR HGB CONC 32 g/dl (31.0-36.0); MEAN CORPUSCULAR VOLUME 73 fL (80-96); MONOCYTES # (AUTO) 1.6 K/uL (0.1-1.30); MONOCYTES % (AUTO) 11.4 % (2.0-12.0); NEUTROPHILS # (AUTO) 11.5 K/uL (1.8-8.9); PLATELET COUNT (AUTO) 449 K/uL (150-450); RED BLOOD CELL COUNT(AUTO) 4.22 MIL/uL (4.5-6.0); WHITE BLOOD COUNT (AUTO) 14.1 K/uL (4.3-11.0)
[2021-07-06 07:05] LABS: CALCIUM, SERUM 9.3 mg/dL (8.5-10.1); CREATININE 5.4 mg/dL (0.6-1.3); MAGNESIUM 2.8 mg/dL (1.8-2.4); PHOSPHORUS 5.1 mg/dL (2.5-4.9); POTASSIUM 3.8 mmol/L (3.5-5.1)
--- NOTE | 2021-07-06 07:34 | NUR ---
NURSE OPENING NOTE PATIENT IN OBTUNDED WITH NO RESPOND TO COMMAND. PATIENT PRESENT WITH POSTERIOR SCALP PRESSURE ULCER. PATIENT RECEIVING TUBE FEEDING WITH NEPRO @40ML/HR. 20G IV ON NIKKI FLUSH AND HEPLOCK. ALL SAFETY MEASURE IN PLACE. BED IN LOWEST POSITION WITH HOB ELEVATED 30 DEGREE. 3 SIDE RAIL UP. CALL LIGHT WITHIN REACH. WILL CONTINUE TO MONITOR.
[2021-07-06 08:00] VITALS: BP 94/52
[2021-07-06] MEDS: CHLORHEXIDINE GLUCONATE 15 ML UDC MM SCH ×2 (09:07→23:55)
[2021-07-06] MEDS: DAKINS QUARTER STRENGTH (0.125%) 480 ML BOTTLE TOP SCH (09:08)
[2021-07-06] MEDS: Z GUARD REMEDY 2 OZ OINT TP SCH (09:09)
[2021-07-06] MEDS: CLOTRIMAZOLE 1% 15 GM TUBE TP SCH ×2 (09:09→17:40)
[2021-07-06] MEDS: DOCUSATE SODIUM LIQ 100 MG/10 ML UDC GT SCH (09:10)
[2021-07-06] MEDS: SEVELAMER CARBONATE 800 MG POWD.PACK GT SCH ×3 (09:10→17:37)
[2021-07-06] MEDS: QUETIAPINE FUMARATE 25 MG TABLET GT SCH ×2 (09:10→17:36)
[2021-07-06] MEDS: PANTOPRAZOLE 40 MG/PACK PACK GT SCH (09:10)
[2021-07-06] MEDS: VALPROIC ACID 250 MG/5 ML UDC GT SCH ×3 (09:10→17:36)
[2021-07-06] MEDS: HEPARIN SODIUM, PORCINE 5000 UNITS/1 ML VIAL SQ SCH (09:11)
[2021-07-06 12:00] VITALS: BP 109/69
[2021-07-06 16:00] VITALS: BP 116/77
[2021-07-06] MEDS: FERRLICET 125MG in 100 ML NS IVPB IV SCH (17:40)
--- NOTE | 2021-07-06 19:26 | NUR ---
NURSE CLOSING NOTE. PATIENT WAS SCHEDULE FOR DIALYSIS BUT BLOOD PRESSURE WAS TOO LOW. WILL REASSESS TOMORROW. REMAIN ON NEPRO FEEDING AT 40ML/HR. DRESSING ON POSTERIOR SCALP CHANGED. ALL SAFETY MEASURE IN PLACE. BED IN THE LOWEST POSITION WITH HEAD OF THE BED ELEVATED 30 DEGREE. 3 SIDE RAIL UP. PATIENT WAS TURN EVERY TWO HOURS PER PROTOCOL. ENDORSE WAS GIVEN TO ON COMING NURSE.
[2021-07-06 20:00] VITALS: BP 85/41
[2021-07-07] VITALS: BP 113/72
[2021-07-07] MEDS: PROPRANOLOL HCL 10 MG TABLET GT SCH ×5 (00:22→23:36)
[2021-07-07] MEDS: HEPARIN SODIUM, PORCINE 5000 UNITS/1 ML VIAL SQ SCH ×3 (00:27→21:13)
[2021-07-07] MEDS: BLOOD SUGAR DIAGNOSTIC 1 EACH STRIP IN SCH ×5 (00:47→21:54)
[2021-07-07] MEDS: INSULIN REGULAR, HUMAN 100 UNIT/ML 3 ML VIAL SQ PRN ×3 (00:48→06:36)
[2021-07-07] MEDS ORDERED: LORAZEPAM INJ 2 MG/ML VIAL IV ONE (02:00)
[2021-07-07 04:00] VITALS: BP 14/47
--- NOTE | 2021-07-07 04:52 | NUR ---
RN notes In bed, eyes closed. No pulmonary distress noted. Breathing even and unlabored, vent settings well tolerated. Noted with elevated temperature at midnight 101.1. Heart rate also went up from 86 to 119bpm. Cooling measures provided. Tylenol 650mg given. Temperature and heart rate went down after an hour. No physical manifestation of pain or discomfort. Vital signs at 04:00 wnl. Kept clean and dry. Will endorse to next shift for continuity of care.
[2021-07-07 07:09] LABS: BASOPHILS # (AUTO) 0.2 K/uL (0.0-0.2); BASOPHILS % (AUTO) 1.6 % (0.0-2.0); EOSINOPHILS % (AUTO) 0.3 % (0.0-6.0); HEMATOCRIT 29 % (39-51); HEMOGLOBIN 9.2 g/dL (13.5-17.5); LYMPHOCYTES # (AUTO) 1.3 K/uL (0.8-4.8); LYMPHOCYTES % (AUTO) 13.6 % (20.0-44.0); MEAN CORPUSCULAR HGB CONC 31 g/dl (31.0-36.0); MEAN CORPUSCULAR VOLUME 74 fL (80-96); MONOCYTES # (AUTO) 1.6 K/uL (0.1-1.30); MONOCYTES % (AUTO) 16.5 % (2.0-12.0); NEUTROPHILS # (AUTO) 6.8 K/uL (1.8-8.9); PLATELET COUNT (AUTO) 371 K/uL (150-450); RED BLOOD CELL COUNT(AUTO) 3.97 MIL/uL (4.5-6.0); WHITE BLOOD COUNT (AUTO) 9.9 K/uL (4.3-11.0)
[2021-07-07 07:19] LABS: CALCIUM, SERUM 9.4 mg/dL (8.5-10.1); CREATININE 5.4 mg/dL (0.6-1.3); MAGNESIUM 2.9 mg/dL (1.8-2.4); POTASSIUM 3.2 mmol/L (3.5-5.1)
--- NOTE | 2021-07-07 07:30 | NUR ---
WRESTLING COACH OPENING NOTE RECEIVED PT IN BED, OBTUNDED, AND NON-VERBAL. PT NOTED ON VENT WITH PRESCRIBED SETTINGS: S #7, FIO2 40%, TV 500, AC 20, PEEP 5. NO SOB OR S/S OF RESPIRATORY DISTRESS NOTED. PT ON EXTERNAL DIRECTOR CHANNEL READING SR. PT HAS NO SIGNS OF PAIN SUCH FACIAL GRIMACING AT THIS TIME. IV ACCESS IN NIKKI MIDLINE, INTACT AND PATENT. PT NOTED WITH RCW PERMACATH INTACT. PT NOTED WITH GTUBE WITH FEEDING OF NEPRO @ 40ML/HR. SAFETY PRECAUTIONS MAINTAINED. BED IN LOWEST LOCKED POSITION, HOB ELEVATED, SIDE RAILS UP X2. CALL LIGHT AND TABLE WITHIN REACH. WILL CONTINUE WITH PLAN OF CARE.
[2021-07-07 08:00] VITALS: BP 154/77
[2021-07-07] MEDS: QUETIAPINE FUMARATE 25 MG TABLET GT SCH ×2 (08:40→16:29)
[2021-07-07] MEDS: CHLORHEXIDINE GLUCONATE 15 ML UDC MM SCH ×2 (08:40→21:09)
[2021-07-07] MEDS: DOCUSATE SODIUM LIQ 100 MG/10 ML UDC GT SCH (08:54)
[2021-07-07] MEDS: PANTOPRAZOLE 40 MG/PACK PACK GT SCH (08:54)
[2021-07-07] MEDS: SEVELAMER CARBONATE 800 MG POWD.PACK GT SCH ×3 (09:00→16:29)
[2021-07-07] MEDS: VALPROIC ACID 250 MG/5 ML UDC GT SCH ×3 (09:04→16:28)
[2021-07-07] MEDS: DAKINS QUARTER STRENGTH (0.125%) 480 ML BOTTLE TOP SCH (09:22)
[2021-07-07] MEDS: Z GUARD REMEDY 2 OZ OINT TP SCH (09:23)
[2021-07-07] MEDS: CLOTRIMAZOLE 1% 15 GM TUBE TP SCH ×2 (09:23→16:42)
[2021-07-07] MEDS: ACETAMINOPHEN 325 MG TABLET PO PRN ×2 (11:53→19:51)
--- NOTE | 2021-07-07 11:53 | NUR ---
RN NOTE PT WITH TEMP 100.4. ADMINISTERED TYLENOL PRN ORDERED. COOLING MEASURES RENDERED. WILL CONTINUE TO MONITOR.
[2021-07-07 12:00] VITALS: BP 123/80
--- NOTE | 2021-07-07 13:00 | NUR ---
RN NOTE RECHECKED PT'S TEMP. TEMP NOTED AT 99.0. NO DISTRESS NOTED. WILL CONTINUE COOLING MEASURES AND MONITOR PT CLOSELY.
[2021-07-07 16:00] VITALS: BP 146/95
[2021-07-07] MEDS: FERRLICET 125MG in 100 ML NS IVPB IV SCH (17:27)
--- NOTE | 2021-07-07 18:37 | NUR ---
GRIPS CLOSING NOTE PT IS IN BED, OBTUNDED, AND NON-VERBAL. PT NOTED ON VENT WITH PRESCRIBED SETTINGS: S #7, FIO2 40%, TV 500, AC 20, PEEP 5. NO SOB OR S/S OF RESPIRATORY DISTRESS NOTED. PT ON EXTERNAL SURFACE MOUNT TECHNOLOGY OPERATOR READING SR. PT HAS NO SIGNS OF PAIN SUCH FACIAL GRIMACING AT THIS TIME. IV ACCESS IN NIKKI MIDLINE, INFUSING FERRLICIT AT 100ML/HR. PT NOTED WITH RCW PERMACATH INTACT. PT NOTED WITH GTUBE WITH FEEDING OF NEPRO @ 40ML/HR. ALL NEEDS HAVE BEEN MET. SAFETY PRECAUTIONS MAINTAINED AT ALL TIMES. BED IN LOWEST LOCKED POSITION, HOB ELEVATED, SIDE RAILS UP X2. CALL LIGHT AND TABLE WITHIN REACH. WILL ENDORSE TO ONCOMING NURSE FOR JOSE L.
--- NOTE | 2021-07-07 19:25 | NUR ---
RN NOTES PT IS IN BED, OBTUNDED, AND NON-VERBAL. PT NOTED ON VENT WITH PRESCRIBED SETTINGS: S #7, FIO2 40%, TV 500, AC 20, PEEP 5. NO SOB OR S/S OF RESPIRATORY DISTRESS NOTED. PT ON EXTERNAL HOP SEPARATOR READING SR. PT HAS NO SIGNS OF PAIN SUCH FACIAL GRIMACING AT THIS TIME. IV ACCESS IN NIKKI MIDLINE PT NOTED WITH RCW PERMACATH INTACT. PT NOTED WITH GTUBE WITH FEEDING OF NEPRO @ 40ML/HR. ALL NEEDS HAVE BEEN MET AT THIS TIME.. SAFETY PRECAUTIONS MAINTAINED AT ALL TIMES. BED IN LOWEST LOCKED POSITION, HOB ELEVATED, SIDE RAILS UP X2. CALL LIGHT AND TABLE WITHIN REACH. WILL CONTINUE TO MONITOR.
[2021-07-07 21:33] VITALS: BP 137/72
--- NOTE | 2021-07-07 21:35 | NUR ---
RN NOTES PT HAS LOW GRADE FEVER PRN TYLENOL GIVEN AND COOLING MEASURES PROVIDED. WILL CONTINUE TO MONITOR.
--- NOTE | 2021-07-07 21:57 | NUR ---
RN NOTES BS CHECKED 102 NO COVERAGE NEEDED AT THIS TIME WILL CONTINUE TO MONITOR.
[2021-07-07] MEDS: MORPHINE SULFATE INJ 2 MG/ML DISP.SYRIN IV PRN (22:59)
--- NOTE | 2021-07-07 23:04 | NUR ---
RN NOTES PRN MORPHINE GIVEN PT HEART RATE IS HIGH PT KEEPS SHIFTING HIS ARM BACK AND FORTH AND APPEARS TENSE AND RESTLESS. WILL CONTINUE TO MONITOR.
[2021-07-08 00:21] VITALS: BP 141/100
--- NOTE | 2021-07-08 03:50 | NUR ---
RN NOTES PT HAS LOW SBP 85/50 RECREATIONAL COUNSELOR DOCTOR INFORMED RECEIVED ORDER TO GIVE A BOLUS OF 500 NS. BOLUS BEING GIVEN AT THE MOMENT WILL CONTINUE TO MONITOR.
[2021-07-08] MEDS: ACETAMINOPHEN 325 MG TABLET PO PRN (05:19)
--- NOTE | 2021-07-08 05:19 | NUR ---
RN NOTES TYLENOL GIVEN FOR LOW GRADE FEVER TOLERATED WELL WILL CONTINUE TO MONITOR.
[2021-07-08 05:23] VITALS: BP 119/70
[2021-07-08] MEDS: PROPRANOLOL HCL 10 MG TABLET GT SCH ×3 (06:00→18:27)
--- NOTE | 2021-07-08 06:21 | NUR ---
RN NOTES PT IS IN BED, OBTUNDED, AND NON-VERBAL. PT NOTED ON VENT WITH PRESCRIBED SETTINGS: S #7, FIO2 40%, TV 500, AC 20, PEEP 5. NO SOB OR S/S OF RESPIRATORY DISTRESS NOTED. PT ON EXTERNAL JUNIOR GRAPHIC DESIGNER READING SR. PT HAS NO SIGNS OF PAIN SUCH FACIAL GRIMACING AT THIS TIME. IV ACCESS IN NIKKI MIDLINE PT NOTED WITH RCW PERMACATH INTACT. PT NOTED WITH GTUBE WITH FEEDING OF NEPRO @ 40ML/HR. ALL NEEDS HAVE BEEN MET AT THIS TIME.. SAFETY PRECAUTIONS MAINTAINED AT ALL TIMES. BED IN LOWEST LOCKED POSITION, HOB ELEVATED, SIDE RAILS UP X2. CALL LIGHT AND TABLE WITHIN REACH. WILL ENDORSE CARE TOO DAY SHIFT NURSE.
[2021-07-08] MEDS: NEPRO 1,000 ML BOTTLE GT SCH (06:24)
[2021-07-08 06:49] LABS: BASOPHILS # (AUTO) 0.1 K/uL (0.0-0.2); BASOPHILS % (AUTO) 1.4 % (0.0-2.0); EOSINOPHILS % (AUTO) 0.3 % (0.0-6.0); HEMATOCRIT 31 % (39-51); HEMOGLOBIN 9.7 g/dL (13.5-17.5); LYMPHOCYTES # (AUTO) 1.5 K/uL (0.8-4.8); LYMPHOCYTES % (AUTO) 15.3 % (20.0-44.0); MEAN CORPUSCULAR HGB CONC 32 g/dl (31.0-36.0); MEAN CORPUSCULAR VOLUME 74 fL (80-96); MONOCYTES # (AUTO) 1.6 K/uL (0.1-1.30); MONOCYTES % (AUTO) 15.7 % (2.0-12.0); NEUTROPHILS # (AUTO) 6.7 K/uL (1.8-8.9); NEUTROPHILS % (AUTO) 67.3 % (43.0-81.0); PLATELET COUNT (AUTO) 335 K/uL (150-450); RED BLOOD CELL COUNT(AUTO) 4.13 MIL/uL (4.5-6.0)
[2021-07-08 07:16] LABS: CALCIUM, SERUM 9.3 mg/dL (8.5-10.1); CREATININE 4.5 mg/dL (0.6-1.3); MAGNESIUM 2.7 mg/dL (1.8-2.4); PHOSPHORUS 4.5 mg/dL (2.5-4.9); POTASSIUM 3.5 mmol/L (3.5-5.1)
[2021-07-08] MEDS: BLOOD SUGAR DIAGNOSTIC 1 EACH STRIP IN SCH ×4 (07:30→22:14)
[2021-07-08] MEDS: CHLORHEXIDINE GLUCONATE 15 ML UDC MM SCH ×2 (09:00→22:12)
[2021-07-08] MEDS: DOCUSATE SODIUM LIQ 100 MG/10 ML UDC GT SCH (09:33)
[2021-07-08] MEDS: VALPROIC ACID 250 MG/5 ML UDC GT SCH ×3 (09:34→18:27)
[2021-07-08] MEDS: PANTOPRAZOLE 40 MG/PACK PACK GT SCH (09:34)
[2021-07-08] MEDS: QUETIAPINE FUMARATE 25 MG TABLET GT SCH ×2 (09:34→18:27)
[2021-07-08] MEDS: SEVELAMER CARBONATE 800 MG POWD.PACK GT SCH ×3 (09:34→18:28)
[2021-07-08] MEDS: Z GUARD REMEDY 2 OZ OINT TP SCH (09:35)
[2021-07-08] MEDS: DAKINS QUARTER STRENGTH (0.125%) 480 ML BOTTLE TOP SCH (09:35)
[2021-07-08] MEDS: CLOTRIMAZOLE 1% 15 GM TUBE TP SCH ×2 (09:35→17:00)
[2021-07-08 11:01] LABS: LYMPHOCYTES % (MANUAL) 21 % (16-48); MONOCYTES % (MANUAL) 5 % (0-11.0); NEUTROPHILS % (MANUAL) 74 (42-76)
[2021-07-08 12:00] VITALS: BP 106/59
[2021-07-08 16:00] VITALS: BP 115/70
--- NOTE | 2021-07-08 19:30 | NUR ---
TRACTOR TECHNICIAN NOTE RECEIVED PATIENT IN BED, OBTUNDED, WITH EYES CLOSED, AROUSABLE TO LIGHT PAIN. NON-VERBAL. PATIENT ON VENT, NO SOB NOTED. SETTINGS SET AT AC:20, TV:500, FIO2:40, PEEP:5. PATIENT WITH OXYGEN SATURATION OF 100 PERCENT AT THIS TIME. PATIENT ON TELEMETRY MONITORING, SINUS TACHYCARDIA WITH 103 BPM. NOTED WITH RIGHT UPPER MIDLINE, PATENT. NOTED WITH RIGHT UPPER CHEST PERMACATH. NO BLEEDING NOTED. NOTED WITH NEPRO FEEDING SET AT 40ML/HR. TOLERATING WELL. SKIN WARM AND DRY TO TOUCH. BED IN LOCKED POSITION. SIDE RAILS UP X2. CALL LIGHT WITHIN REACH. WILL CONTINUE TO MONITOR.
[2021-07-08 20:00] VITALS: BP 82/49
[2021-07-08] MEDS ORDERED: IV NS 0.9% 500 ML IV ONE (20:12)
--- NOTE | 2021-07-08 20:28 | NUR ---
ARTIFICIAL INTELLIGENCE SPECIALIST NOTE PATIENT NOTED WITH BP OF 82/49, CONSULTED DR. CORTEZ WITH NEW ORDER. NEW ORDER OF 500 ML BOLUS ADMINISTERED. FAMILY MADE AWARE OF CHANGE OF CONDITION. WILL CONTINUE TO MONITOR.
--- NOTE | 2021-07-08 20:50 | NUR ---
COMPOSITION TEACHER NOTE RECHECKED PATIENTS BLOOD PRESSURE WITH READING OF 109/70 AND HEART RATE OF 97. WILL CONTINUE TO MONITOR.
--- NOTE | 2021-07-08 22:23 | NUR ---
GENERAL OFFICE ASSOCIATE NOTE PATIENT WITH BLOOD GLUCOSE LEVEL OF 100. PER SLIDING SCALE, NO INSULIN TO BE ADMINISTERED.
[2021-07-09] VITALS: BP 108/65
--- NOTE | 2021-07-09 00:24 | NUR ---
HOME LENDING OFFICER NOTE PATIENT WITH BP OF 108/65 AND HR OF 90. HELD SCHEDULED DOSE OF PROPANOLOL 10 MG. PATIENT WITH EPISODE EARLIER OF HYPOTENSION,BP 82/49. ADMINISTERED NS 500 ML BOLUS IV PER MD ORDER. MD MADE AWARE.
[2021-07-09 04:00] VITALS: BP 125/78
[2021-07-09] MEDS: ACETAMINOPHEN 325 MG TABLET PO PRN ×2 (05:04→23:13)
[2021-07-09] MEDS: PROPRANOLOL HCL 10 MG TABLET GT SCH ×6 (05:05→23:13)
--- NOTE | 2021-07-09 05:05 | NUR ---
TOLL MECHANIC NOTE NOTED PATIENT WITH TEMPERATURE OF 100.9. ADMINISTERED TYLENOL 650 MG VIA G-TUBE PER MD ORDER. WILL CONTINUE TO MONITOR PATIENT.
--- NOTE | 2021-07-09 06:10 | NUR ---
FUND DIRECTOR NOTE PATIENT WITH BLOOD PRESSURE OF 111/58, HEART RATE OF 92 BPM, AND TEMPERATURE OF 97.0F. WILL CONTINUE TO MONITOR.
--- NOTE | 2021-07-09 07:22 | NUR ---
REGIONAL VICE PRESIDENT SURGICAL SALES NOTE PATIENT VITAL SIGNS WITHIN NORMAL LIMITS. EYES OPEN. AFEBRILE AT THIS TIME. BREATHING EVEN AND UNLABORED, WITH SATURATION OF 100 PERCENT. NO SOB NOTED. SKIN WARM AND DRY TO TOUCH. KEPT CLEAN AND DRY AT ALL TIMES. BED LOW, IN LOCKED POSITION, TURNED AND REPOSITION EVERY 2 HOURS. CALL LIGHT WITHIN REACH.
[2021-07-09 08:00] VITALS: BP 132/75
[2021-07-09] MEDS: BLOOD SUGAR DIAGNOSTIC 1 EACH STRIP IN SCH ×4 (08:08→22:03)
[2021-07-09] MEDS: INSULIN REGULAR, HUMAN 100 UNIT/ML 3 ML VIAL SQ PRN (08:09)
[2021-07-09] MEDS: DOCUSATE SODIUM LIQ 100 MG/10 ML UDC GT SCH (08:23)
[2021-07-09] MEDS: CHLORHEXIDINE GLUCONATE 15 ML UDC MM SCH ×2 (08:23→22:03)
[2021-07-09] MEDS: CLOTRIMAZOLE 1% 15 GM TUBE TP SCH ×2 (08:24→16:45)
[2021-07-09] MEDS: SEVELAMER CARBONATE 800 MG POWD.PACK GT SCH ×3 (08:24→16:45)
[2021-07-09] MEDS: VALPROIC ACID 250 MG/5 ML UDC GT SCH ×3 (08:24→16:44)
[2021-07-09] MEDS: DAKINS QUARTER STRENGTH (0.125%) 480 ML BOTTLE TOP SCH (08:24)
[2021-07-09] MEDS: PANTOPRAZOLE 40 MG/PACK PACK GT SCH (08:24)
[2021-07-09] MEDS: QUETIAPINE FUMARATE 25 MG TABLET GT SCH ×2 (08:24→16:44)
[2021-07-09] MEDS: Z GUARD REMEDY 2 OZ OINT TP SCH (08:24)
[2021-07-09] MEDS: NEPRO 1,000 ML BOTTLE GT SCH (08:29)
[2021-07-09 12:00] VITALS: BP 103/62
[2021-07-09 12:29] LABS: BASOPHILS # (AUTO) 0.1 K/uL (0.0-0.2); BASOPHILS % (AUTO) 1.4 % (0.0-2.0); EOSINOPHILS % (AUTO) 0.9 % (0.0-6.0); HEMATOCRIT 29 % (39-51); HEMOGLOBIN 9.2 g/dL (13.5-17.5); LYMPHOCYTES # (AUTO) 1.9 K/uL (0.8-4.8); LYMPHOCYTES % (AUTO) 23.9 % (20.0-44.0); MEAN CORPUSCULAR HGB CONC 32 g/dl (31.0-36.0); MEAN CORPUSCULAR VOLUME 75 fL (80-96); MONOCYTES # (AUTO) 0.9 K/uL (0.1-1.30); MONOCYTES % (AUTO) 11.6 % (2.0-12.0); NEUTROPHILS # (AUTO) 4.9 K/uL (1.8-8.9); NEUTROPHILS % (AUTO) 62.2 % (43.0-81.0); PLATELET COUNT (AUTO) 282 K/uL (150-450); WHITE BLOOD COUNT (AUTO) 7.9 K/uL (4.3-11.0)
[2021-07-09 12:55] LABS: CALCIUM, SERUM 9.7 mg/dL (8.5-10.1); CREATININE 3.7 mg/dL (0.6-1.3)
--- NOTE | 2021-07-09 15:06 | NUR ---
RN NOTE PER DR. SHERIDAN NO DIALYSIS TODAY POTASSIUM OF 3.0. START ON IV HYDRATION POTASSIUM 20 MEQ ON D5 1/2 NS ORDERED, REPLACE POTASSIUM ORDERED.
[2021-07-09] MEDS: POTASSIUM CL. PREMIX PERIPHER. 50 ML IV SCH ×2 (15:33→16:41)
[2021-07-09] MEDS: Potassium Chloride 20 MEQ in IV D5/0.45 NACL 1,000 ML IV SCH (15:33)
[2021-07-09 16:00] VITALS: BP 111/78
--- NOTE | 2021-07-09 18:38 | NUR ---
RN CLOSING NOTE PATIENT IN BED, OBTUNDED. TRACH IN PLACE WITH 40 FiO2 AND PEEP OF 5, NO SIGNS OF LABORED BREATHING. TELE MONITOR ON, SINUS TACHY AT THIS TIME. G TUBE IN PLACE RUNNING NEPHRO AT 40 CC/HR. R UA MIDLINE AND R UPPER CHEST PERMACATH IN PLACE. BED LOCKED AND IN LOWEST POSITION, 3 SIDE RAILS UP, CALL LIGHT WITHIN REACH. WILL ENDORSE TO DEPARTMENTAL BUYER NURSE.
--- NOTE | 2021-07-09 19:48 | NUR ---
RN NOTE PATIENT OBTUNDED IN BED, OPENS EYES. ON TRACH TO VENT, S#7, AC 20, TV 500, FIO2 40 AND PEEP 5, TOLERATING SETTINGS WELL. NO ACUTE RESPIRATORY DISTRESS. SINUS TACHY ON THE MONITOR. HEAD OF BED ELEVATED, ON NEPHRO @40ML/HR. 30 CC RESIDUAL NOTED. BED LOCKED AND IN LOWEST POSITION. CALL LIGHT WITHIN REACH. ALL NEEDS ANTICIPATED.
[2021-07-09 20:00] VITALS: BP 86/49
--- NOTE | 2021-07-09 20:30 | NUR ---
RN NOTE PATIENT NOTED WITH LOW BP 86/49. PAGED CALEB STONE. WILL CONTINUE TO MONITOR.
--- NOTE | 2021-07-09 21:21 | NUR ---
RN NOTE RECHECKED BLOOD PRESSURE 128/82, CALEB STONE MADE AWARE. WILL CONTINUE TO MONITOR.
--- NOTE | 2021-07-09 23:13 | NUR ---
RN NOTE PATIENT HEART RATE 140-150'S. BLOOD PRESSURE 178/97 AND TEMPERATURE 102.2. COOLING MEASURES PROVIDED. PROPRANOLOL 20MG AND TYLENOL 650MG ADMINISTERED ORDERED. WILL CONTINUE TO MONITOR.
[2021-07-10] VITALS: BP 126/77
--- NOTE | 2021-07-10 | NUR ---
RN NOTE VITAL SIGNS NOTED BP 126/77, HR 96, TEMP 99.8. CONTINUE COOLING MEASURES. WILL CONTINUE TO MONITOR.
[2021-07-10 04:00] VITALS: BP 136/91
[2021-07-10] MEDS: Potassium Chloride 20 MEQ in IV D5/0.45 NACL 1,000 ML IV SCH (04:50)
[2021-07-10] MEDS: PROPRANOLOL HCL 10 MG TABLET GT SCH ×3 (05:20→17:35)
--- NOTE | 2021-07-10 07:01 | NUR ---
RN NOTE PATIENT OBTUNDED IN BED, OPENS EYES. ON TRACH TO VENT, S#7, AC 20, TV 500, FIO2 40 AND PEEP 5, TOLERATING SETTINGS WELL. NO SOB NOTED. HEAD OF BED ELEVATED, ON NEPHRO @40ML/HR. NO RESIDUAL NOTED. TOLERATED BED BATH WELL. TURNED AND REPOSITIONED. BED LOCKED AND IN LOWEST POSITION. CALL LIGHT WITHIN REACH. ENDORSED TO AM SHIFT.
[2021-07-10] MEDS: BLOOD SUGAR DIAGNOSTIC 1 EACH STRIP IN SCH ×4 (07:35→21:05)
[2021-07-10 08:00] VITALS: BP 112/79
--- NOTE | 2021-07-10 08:00 | NUR ---
NURSE OPENING NOTE RECEIVE REPORT FROM WIRE SAW OPERATOR NURSE. PATIENT IN STABLE CONDITION WITH NO SIGN OF DISTRESS. IV FLUSH IS PATENT AND FLUSH. ALL SAFETY MEASURES IN PLACE. BED IN LOWEST POSITION WITH HOB ELEVATED 30 DEGREE. CALL LIGHT WITHIN REACH. WILL CONTINUE TO MONITOR.
[2021-07-10] MEDS: DOCUSATE SODIUM LIQ 100 MG/10 ML UDC GT SCH (09:41)
[2021-07-10] MEDS: CHLORHEXIDINE GLUCONATE 15 ML UDC MM SCH ×2 (09:41→21:04)
[2021-07-10] MEDS: SEVELAMER CARBONATE 800 MG POWD.PACK GT SCH ×3 (09:41→17:35)
[2021-07-10] MEDS: VALPROIC ACID 250 MG/5 ML UDC GT SCH ×3 (09:42→17:35)
[2021-07-10] MEDS: QUETIAPINE FUMARATE 25 MG TABLET GT SCH ×2 (09:42→17:36)
[2021-07-10] MEDS: PANTOPRAZOLE 40 MG/PACK PACK GT SCH (09:42)
[2021-07-10] MEDS: DAKINS QUARTER STRENGTH (0.125%) 480 ML BOTTLE TOP SCH (09:43)
[2021-07-10] MEDS: Z GUARD REMEDY 2 OZ OINT TP SCH (09:43)
[2021-07-10] MEDS: CLOTRIMAZOLE 1% 15 GM TUBE TP SCH ×2 (09:44→17:37)
[2021-07-10 11:21] LABS: BASOPHILS # (AUTO) 0.1 K/uL (0.0-0.2); BASOPHILS % (AUTO) 1.1 % (0.0-2.0); EOSINOPHILS % (AUTO) 1.2 % (0.0-6.0); HEMATOCRIT 30 % (39-51); HEMOGLOBIN 9.4 g/dL (13.5-17.5); LYMPHOCYTES # (AUTO) 1.5 K/uL (0.8-4.8); MEAN CORPUSCULAR HGB CONC 31 g/dl (31.0-36.0); MEAN CORPUSCULAR VOLUME 76 fL (80-96); MONOCYTES # (AUTO) 1.1 K/uL (0.1-1.30); MONOCYTES % (AUTO) 11.6 % (2.0-12.0); NEUTROPHILS # (AUTO) 6.6 K/uL (1.8-8.9); NEUTROPHILS % (AUTO) 70.1 % (43.0-81.0); PLATELET COUNT (AUTO) 244 K/uL (150-450); RED BLOOD CELL COUNT(AUTO) 4.02 MIL/uL (4.5-6.0); WHITE BLOOD COUNT (AUTO) 9.4 K/uL (4.3-11.0)
[2021-07-10 12:00] VITALS: BP 101/73
[2021-07-10 12:55] LABS: ALBUMIN 2.9 g/dL (3.4-5.0); BILIRUBIN,TOTAL 0.3 mg/dL (0.2-1.0); CALCIUM, SERUM 9.5 mg/dL (8.5-10.1); CREATININE 3.1 mg/dL (0.6-1.3); POTASSIUM 3.7 mmol/L (3.5-5.1); TOTAL PROTEIN, SERUM 8.7 g/dL (6.4-8.2)
--- NOTE | 2021-07-10 14:43 | NUR ---
SS note: SW completed Admission Verification letter per family's request. SW called pt.'s family, Amanda [phone] and notified them the letter is ready for bean picker machine operator. Family stated they will bean picker machine operator the letter at 11 am tomorrow.
[2021-07-10] MEDS: Potassium Chloride 10 MEQ in IV D5W 1,000 ML IV SCH (15:45)
[2021-07-10] MEDS: NEPRO 1,000 ML BOTTLE GT SCH (15:54)
[2021-07-10 16:00] VITALS: BP 104/56
--- NOTE | 2021-07-10 19:30 | NUR ---
RN NOTE RECEIVED PATIENT IN BED. OBTUNDED. ON MECHANICAL VENT SURAJ #7, AC 20 TV 500F IO2 40 PEEP 5. RESPIRATIONS ARE EVEN AND UNLABORED. NO S/S RESP DISTRESS. NO S/S PAIN AT THIS TIME. IN NO APPARENT DISTRESS. IV ACCESS IN NIKKI MIDLINE RUNNING 10MEQ KCL D5NS@100, GTUBE IS PRESENT, NO RESIDUAL, RUINING NEPRO @45ML.HR, CONDOM CATH IS PRESENT, DRAINING TO GRAVITY, URINE IS YELLOW. BED IS LOW AND LOCKED, HOB ELEVATED IN SEMI FOWLERS, SIDE RIALS UP X2, CALL LIGHT WITHIN REACH.
--- NOTE | 2021-07-10 19:37 | NUR ---
NURSE CLOSING NOTE REPORT WAS GIVEN TO ON COMING NURSE. PATIENT REMAIN STABLE THROUGHOUT SHIFT. G-TUBE WAS CHANGED FROM 40ML/HR TO 45ML/HR. DIALYSIS WAS NOT DONE. WILL REASSESS TOMORROW. WOUND DEBRIDEMENT WAS DONE ON THE BACK OF SKULL. SAFETY MEASURE IN PLACE. BED ON THE LOWEST POSITION WITH HOB ELEVATED 30 DEGREE.
[2021-07-10 20:00] VITALS: BP 95/51
[2021-07-10] MEDS: INSULIN REGULAR, HUMAN 100 UNIT/ML 3 ML VIAL SQ PRN (21:09)
[2021-07-11] VITALS (8 sets, daily range): BP systolic 98–175; BP diastolic 58–101
[2021-07-11] MEDS: PROPRANOLOL HCL 10 MG TABLET GT SCH ×5 (01:09→23:24)
[2021-07-11] MEDS: Potassium Chloride 10 MEQ in IV D5W 1,000 ML IV SCH (01:11)
[2021-07-11] MEDS: ACETAMINOPHEN 325 MG TABLET PO PRN ×2 (05:06→23:23)
--- NOTE | 2021-07-11 05:20 | NUR ---
RN NOTE INFORMED ADVERTISING SOLICITOR CALEB STONE DIESEL LOCOMOTIVE FIRER/FIREMAN THAT PATIENT HAD A CHANGE OF CONDITION. TEMP 101.8 AX, 99.8 PO. HR 150S, RR 48, BP 175/101 HR BS 101. GAVE TYLENOL 650MG PRN AND INDERAL 20MG THAT IS SCHEDULED. DIESEL LOCOMOTIVE FIRER/FIREMAN TELEPHONE ORDER TO PALACE 6 ICE PACKS ON PATIENT. INFORMED ME SHE DID NOT WANT TO GIVE ANY MORE BP MEDICATION ON TOP OF INDERAL D/T PATIENT OCCASIONALLY HAS LOW BP. HIGH HR D/T TEMP. WILL CARRY OUT ORDERS
[2021-07-11] MEDS ORDERED: MEROPENEM 500 MG in IV NS 0.9% 50 ML IV SCH (05:30)
[2021-07-11] MEDS ORDERED: MEROPENEM 500 MG VIAL IV ONE (06:20)
[2021-07-11 06:24] LABS: BASOPHILS # (AUTO) 0.1 K/uL (0.0-0.2); BASOPHILS % (AUTO) 0.8 % (0.0-2.0); EOSINOPHILS % (AUTO) 1.3 % (0.0-6.0); HEMATOCRIT 32 % (39-51); HEMOGLOBIN 9.8 g/dL (13.5-17.5); LYMPHOCYTES # (AUTO) 1.8 K/uL (0.8-4.8); LYMPHOCYTES % (AUTO) 11.6 % (20.0-44.0); MEAN CORPUSCULAR HGB CONC 30 g/dl (31.0-36.0); MEAN CORPUSCULAR VOLUME 77 fL (80-96); MONOCYTES # (AUTO) 1.4 K/uL (0.1-1.30); MONOCYTES % (AUTO) 8.9 % (2.0-12.0); NEUTROPHILS % (AUTO) 77.4 % (43.0-81.0); PLATELET COUNT (AUTO) 259 K/uL (150-450); RED BLOOD CELL COUNT(AUTO) 4.21 MIL/uL (4.5-6.0); WHITE BLOOD COUNT (AUTO) 15.5 K/uL (4.3-11.0)
--- NOTE | 2021-07-11 07:10 | NUR ---
NURSE OPENING NOTE RECEIVE REPORT FROM OUT GOING NURSE. PATIENT IS CONFUSED. PATIENT IS STABLE. RIGHT UPPER ARM MID LINE FLUSH WELL. BLOOD SUGAR TRENDING DOWN. WILL MONITOR INTAKE AND OUT PUT AND LABS. SAFETY MEASURE IN PLACE. BED ON THE LOWEST POSITION WITH 3 RAIL UP. HOB ELEVATED. WILL CONTINUE TO MONITOR. Addendum: 07/11/21 at 0718 by NIMCO CHRISTIANSON RN PATIENT IS NOT CONFUSED. PATIENT IS OBTUNDED. ON MECHANICAL VENTILATOR. PATIENT HAD AN INCREASE IN TEMPERATURE. TYLENOL WAS GIVEN. PENDING RESPIRATORY CULTURE. PENDING URINE CULTURE AND BLOOD CULTURE RESULT. WILL CONTINUE TO MONITOR.
[2021-07-11 07:20] LABS: ALBUMIN 3.3 g/dL (3.4-5.0); BILIRUBIN,TOTAL 0.4 mg/dL (0.2-1.0); CALCIUM, SERUM 9.8 mg/dL (8.5-10.1); CREATININE 2.7 mg/dL (0.6-1.3); POTASSIUM 4.9 mmol/L (3.5-5.1); TOTAL PROTEIN, SERUM 9.8 g/dL (6.4-8.2)
[2021-07-11] MEDS: BLOOD SUGAR DIAGNOSTIC 1 EACH STRIP IN SCH ×4 (07:41→22:38)
--- NOTE | 2021-07-11 07:58 | NUR ---
RN NOTE RESTING IN BED. OBTUNDED. ON MECHANICAL VENT SHILEY #7, NO CHANGES IN SETTINGS. DID EXPERIENCE RESP DISTRESS, RR REACH 48. PATIENT WAS RUNNING A TEMP 101.8, HR 150S, BP 170/100, TYLENOL AND SCHEDULE BP MED GIVEN. PATIENT IS NOW STABLE. NIKKI MIDLINE RUNNING 10MEQ KCL D5NS@100, GTUBE RUNING NEPRO @45ML.HR, CONDOM CATH OUTPUT 700ML. BED REMAINS LOW AND LOCKED, HOB ELEVATED IN SEMI FOWLERS, SIDE RIALS UP X2, CALL LIGHT WITHIN REACH.
[2021-07-11] MEDS: CHLORHEXIDINE GLUCONATE 15 ML UDC MM SCH ×2 (09:26→22:08)
[2021-07-11] MEDS: FERROUS SULFATE (325 MG) 325 MG/TAB TABLET PO SCH ×3 (09:26→17:25)
[2021-07-11] MEDS: QUETIAPINE FUMARATE 25 MG TABLET GT SCH ×2 (09:26→17:25)
[2021-07-11] MEDS: PANTOPRAZOLE 40 MG/PACK PACK GT SCH (09:26)
[2021-07-11] MEDS: SEVELAMER CARBONATE 800 MG POWD.PACK GT SCH ×2 (09:26→13:29)
[2021-07-11] MEDS: DOCUSATE SODIUM LIQ 100 MG/10 ML UDC GT SCH (09:26)
[2021-07-11] MEDS: VALPROIC ACID 250 MG/5 ML UDC GT SCH ×3 (09:26→17:25)
[2021-07-11] MEDS: DAKINS QUARTER STRENGTH (0.125%) 480 ML BOTTLE TOP SCH (09:27)
[2021-07-11] MEDS: CLOTRIMAZOLE 1% 15 GM TUBE TP SCH ×2 (09:27→17:26)
[2021-07-11] MEDS: Z GUARD REMEDY 2 OZ OINT TP SCH (09:28)
[2021-07-11] MEDS ORDERED: VANCOMYCIN 1 GM in IV D5W 250 ML IV SCH (11:30)
[2021-07-11] MEDS ORDERED: VANCOMYCIN 1 GM in IV D5W 250 ML IV ONE (12:00)
[2021-07-11] MEDS: NEPRO 1,000 ML BOTTLE GT SCH (16:03)
[2021-07-11] MEDS: MEROPENEM 500 MG in IV NS 0.9% 50 ML IV SCH (17:25)
[2021-07-11] MEDS: IV D5W 1,000 ML IV PRN (18:03)
--- NOTE | 2021-07-11 18:43 | NUR ---
NURSE CLOSING NOTE. PATIENT HAVE BEEN STABLE THROUGH OUT SHIFT. REMAIN ON SAME VENT SETTING. PATIENT IS OBTUNDED. OCCASIONAL SINUS TACHY. URINE OUT PUT 950ML. WILL REASSESS FOR DIALYSIS. CONTINUE ON NEPRO FEEDING AT 45ML/HR. BLOOD SUGAR HAVE BEEN STABLE. PATIENT IS STARTED ON D5W AT 100ML/HR. POTASSIUM DRIP 10MEQ WAS DISCONTINUE. LAB SHOW IMPROVE SODIUM AND POTASSIUM VALUE.
[2021-07-11] MEDS: INSULIN REGULAR, HUMAN 100 UNIT/ML 3 ML VIAL SQ PRN (22:38)
[2021-07-11] MEDS: MORPHINE SULFATE INJ 2 MG/ML DISP.SYRIN IV PRN (23:23)
[2021-07-12] VITALS: BP 116/72
[2021-07-12 04:00] VITALS: BP 126/86
[2021-07-12] MEDS: IV D5W 1,000 ML IV PRN ×2 (05:49→22:21)
[2021-07-12] MEDS: MEROPENEM 500 MG in IV NS 0.9% 50 ML IV SCH ×2 (05:55→17:32)
[2021-07-12] MEDS: PROPRANOLOL HCL 10 MG TABLET GT SCH ×4 (06:02→23:31)
[2021-07-12 06:35] LABS: BASOPHILS # (AUTO) 0.1 K/uL (0.0-0.2); BASOPHILS % (AUTO) 0.9 % (0.0-2.0); EOSINOPHILS % (AUTO) 3.7 % (0.0-6.0); HEMATOCRIT 29 % (39-51); HEMOGLOBIN 9.1 g/dL (13.5-17.5); LYMPHOCYTES # (AUTO) 1.5 K/uL (0.8-4.8); LYMPHOCYTES % (AUTO) 13.6 % (20.0-44.0); MEAN CORPUSCULAR HGB CONC 32 g/dl (31.0-36.0); MEAN CORPUSCULAR VOLUME 75 fL (80-96); MONOCYTES # (AUTO) 1.1 K/uL (0.1-1.30); MONOCYTES % (AUTO) 10.2 % (2.0-12.0); NEUTROPHILS # (AUTO) 7.8 K/uL (1.8-8.9); NEUTROPHILS % (AUTO) 71.6 % (43.0-81.0); PLATELET COUNT (AUTO) 219 K/uL (150-450); RED BLOOD CELL COUNT(AUTO) 3.84 MIL/uL (4.5-6.0); WHITE BLOOD COUNT (AUTO) 10.8 K/uL (4.3-11.0)
--- NOTE | 2021-07-12 07:21 | NUR ---
NURSE OPENING NOTE RECEIVE REPORT FROM AUTO REFINISHER NURSE. PATIENT REMAIN OBTUNDED ON MECHANICAL VENTILATOR. PATIENT HAD TEMPERATURE PER AUTO REFINISHER NURSE. COOLING MEASURE WAS PROVIDED. SAFETY MEASURE IN PLACE BED ON THE LOWEST POSITION WITH HOB ELEVATED. 3 SIDE RAIL UP. CALL LIGHT WITHIN REACH. WILL CONTINUE TO MONITOR.
--- NOTE | 2021-07-12 07:34 | NUR ---
RN notes Obtunded. Unable to make needs known. No distress noted. Breathing even and unlabored. Vent setting well tolerated. No physical manifestation of pain of pain or discomfort. With episodes of elevated temperature, Tylenol given. Cooling measures provided. Kept clean and dry. Endorsed to next shift for continuity of care.
[2021-07-12 07:35] LABS: BILIRUBIN,TOTAL 0.5 mg/dL (0.2-1.0); CALCIUM, SERUM 9.4 mg/dL (8.5-10.1); CREATININE 2.1 mg/dL (0.6-1.3); PHOSPHORUS 3.8 mg/dL (2.5-4.9); POTASSIUM 3.9 mmol/L (3.5-5.1)
[2021-07-12] MEDS: BLOOD SUGAR DIAGNOSTIC 1 EACH STRIP IN SCH ×4 (07:58→22:00)
[2021-07-12 08:00] VITALS: BP 122/76
[2021-07-12] MEDS: QUETIAPINE FUMARATE 25 MG TABLET GT SCH ×2 (08:17→17:32)
[2021-07-12] MEDS: FERROUS SULFATE (325 MG) 325 MG/TAB TABLET PO SCH ×3 (08:17→17:33)
[2021-07-12] MEDS: PANTOPRAZOLE 40 MG/PACK PACK GT SCH (08:17)
[2021-07-12] MEDS: DOCUSATE SODIUM LIQ 100 MG/10 ML UDC GT SCH (08:17)
[2021-07-12] MEDS: VALPROIC ACID 250 MG/5 ML UDC GT SCH ×3 (08:17→17:32)
[2021-07-12] MEDS: CHLORHEXIDINE GLUCONATE 15 ML UDC MM SCH ×2 (08:17→22:19)
[2021-07-12] MEDS: DAKINS QUARTER STRENGTH (0.125%) 480 ML BOTTLE TOP SCH (08:18)
[2021-07-12] MEDS: Z GUARD REMEDY 2 OZ OINT TP SCH (08:18)
[2021-07-12] MEDS: CLOTRIMAZOLE 1% 15 GM TUBE TP SCH ×2 (08:18→17:32)
[2021-07-12] MEDS ORDERED: VANCOMYCIN 0.75 GM in IV D5W 250 ML IV SCH (09:00)
[2021-07-12] MEDS ORDERED: VANCOMYCIN 1 GM in IV D5W 250 ML IV ONE (09:00)
[2021-07-12 12:00] VITALS: BP 113/79
--- NOTE | 2021-07-12 12:59 | NUR ---
NURSE NOTE. CHANGE MID LINE DRESSING. PERFORM WOUND CARE ON POSTERIOR SCALP WITH DAKIN SOLUTION. WILL CONTINUE TO MONITOR.
[2021-07-12] MEDS ORDERED: VANCOMYCIN 500 MG in IV D5W 100 ML IV ONE (14:00)
[2021-07-12 16:00] VITALS: BP 128/71
--- NOTE | 2021-07-12 19:19 | NUR ---
NURSE CLOSING NOTE PATIENT IS STABLE THROUGH OUT SHIFT. TYLENOL WAS GIVEN IN THE MORNING FOR SLIGHT INCREASE IN TEMPERATURE. DRESSING WAS CHANGED ON THE BACK OF SCALP. CONTINUE ON NEPRO AT 45ML/HR. BLOOD SUGAR HAVE BEEN STABLE. SAFETY MEASURE IN PLACE. BED ON THE LOWEST POSITION WITH HOB ELEVATED. 3 SIDE RAIL UP. CALL LIGHT WITHIN REACH. WILL CONTINUE TO MONITOR AND GIVE REPORT TO ON COMING NURSE.
[2021-07-12 20:00] VITALS: BP 110/55
--- NOTE | 2021-07-12 22:21 | NUR ---
BLOOD QQPRO=[id number], NO INSULIN COVERAGE NEEDED.
[2021-07-12] MEDS: ACETAMINOPHEN 325 MG TABLET PO PRN (23:30)
[2021-07-13] VITALS: BP 129/86
[2021-07-13 04:00] VITALS: BP 108/65
[2021-07-13] MEDS: MEROPENEM 500 MG in IV NS 0.9% 50 ML IV SCH ×2 (05:46→18:13)
[2021-07-13] MEDS: PROPRANOLOL HCL 10 MG TABLET GT SCH ×4 (05:47→23:02)
[2021-07-13] MEDS: NEPRO 1,000 ML BOTTLE GT SCH (05:49)
[2021-07-13] MEDS: IV D5W 1,000 ML IV PRN ×2 (05:54→17:08)
[2021-07-13 06:00] LABS: BASOPHILS # (AUTO) 0.1 K/uL (0.0-0.2); BASOPHILS % (AUTO) 0.8 % (0.0-2.0); EOSINOPHILS % (AUTO) 3.2 % (0.0-6.0); HEMATOCRIT 28 % (39-51); HEMOGLOBIN 8.7 g/dL (13.5-17.5); LYMPHOCYTES # (AUTO) 1.5 K/uL (0.8-4.8); LYMPHOCYTES % (AUTO) 12.9 % (20.0-44.0); MEAN CORPUSCULAR HGB CONC 31 g/dl (31.0-36.0); MEAN CORPUSCULAR VOLUME 76 fL (80-96); MONOCYTES # (AUTO) 0.9 K/uL (0.1-1.30); MONOCYTES % (AUTO) 8.3 % (2.0-12.0); NEUTROPHILS # (AUTO) 8.5 K/uL (1.8-8.9); NEUTROPHILS % (AUTO) 74.8 % (43.0-81.0); PLATELET COUNT (AUTO) 207 K/uL (150-450); RED BLOOD CELL COUNT(AUTO) 3.73 MIL/uL (4.5-6.0); WHITE BLOOD COUNT (AUTO) 11.4 K/uL (4.3-11.0)
[2021-07-13] MEDS ORDERED: VANCOMYCIN 500 MG in IV D5W 100 ML IV PRN (06:00)
--- NOTE | 2021-07-13 06:56 | NUR ---
SHIPPING AND RECEIVING SUPERVISOR CLOSING NOTES: PATIENT IS STABLE THROUGHOUT THE SHIFT. OBTUNDED. NO S/S OF DISTRESS NOTED. NOT IN PAIN. BED IN LOWEST AND LOCKED POSITION. HOB ELEVATED. TURNED AND REPOSITIONED [id number]. OFFLOADED. WITH TF NEPRO AT 45ML/HOUR, NO RESIDUAL NOTED. GT FLUSHED WITH 100ML WATER Q 4HOURS. HEELS OFFLOADED.
[2021-07-13 07:10] LABS: BILIRUBIN,TOTAL 0.4 mg/dL (0.2-1.0); CALCIUM, SERUM 9.6 mg/dL (8.5-10.1); CREATININE 1.9 mg/dL (0.6-1.3); POTASSIUM 3.8 mmol/L (3.5-5.1); TOTAL PROTEIN, SERUM 9.1 g/dL (6.4-8.2)
--- NOTE | 2021-07-13 07:30 | NUR ---
RN note: Pt received asleep, obtunded, open eyes to verbal & tactile stimuli. Obtunded, non verbal. On vent-trac, settings tolerating well. Continue with tube feeding, tolerating well. Aspiration precautions observed. IV site clean & dry, continue with IV fluids as ordered. Safety measures observed. Condom cath intact and clean for strict I/O. Continue to monitor closely.
[2021-07-13 08:00] VITALS: BP 123/72
[2021-07-13] MEDS: FERROUS SULFATE (325 MG) 325 MG/TAB TABLET PO SCH ×3 (09:16→18:14)
[2021-07-13] MEDS: PANTOPRAZOLE 40 MG/PACK PACK GT SCH (09:16)
[2021-07-13] MEDS: CLOTRIMAZOLE 1% 15 GM TUBE TP SCH ×2 (09:17→17:00)
[2021-07-13] MEDS: DAKINS QUARTER STRENGTH (0.125%) 480 ML BOTTLE TOP SCH (09:17)
[2021-07-13] MEDS: VALPROIC ACID 250 MG/5 ML UDC GT SCH ×3 (09:17→18:13)
[2021-07-13] MEDS: DOCUSATE SODIUM LIQ 100 MG/10 ML UDC GT SCH (09:17)
[2021-07-13] MEDS: QUETIAPINE FUMARATE 25 MG TABLET GT SCH ×2 (09:17→18:13)
[2021-07-13] MEDS: Z GUARD REMEDY 2 OZ OINT TP SCH (09:17)
[2021-07-13] MEDS: CHLORHEXIDINE GLUCONATE 15 ML UDC MM SCH ×2 (09:17→20:49)
[2021-07-13] MEDS: BLOOD SUGAR DIAGNOSTIC 1 EACH STRIP IN SCH ×4 (09:17→21:52)
[2021-07-13 12:00] VITALS: BP 113/59
[2021-07-13] MEDS: ACETAMINOPHEN 325 MG TABLET PO PRN ×2 (13:10→23:01)
[2021-07-13 16:00] VITALS: BP 145/90
[2021-07-13] MEDS ORDERED: VANCOMYCIN 500 MG in IV D5W 100 ML IV ONE (16:00)
--- NOTE | 2021-07-13 18:59 | NUR ---
RN note: No significant changes noted during shift. Continue to monitor. Addendum: 07/13/21 at 1900 by OTTO WAYNE RN Will endorse to PM shift for continuity of care.
--- NOTE | 2021-07-13 19:13 | NUR ---
RN NOTES: RECEIVED ASLEEP ON BED, OBTUNDED,ON TRACH SHILEY#7, AC:20 TV:500 FiO2:40 PEEP:5 SPO2:100%, ON TELE MONITOR, SR- RATE 97, ON CONDOM CATH, PEG TUBE FEEDING ONGOING NEPHRO AT 45 ML/HR, NIKKI PATINO G#18 INTACT WITH IVF ONGOING OF D5W AT 100 ML/HR, PER ENDORSEMENT SLIGHT FEVERISH RECEIVED TYLENOL,HIS LAST HD WAS ON 07/11/21, NO SCHEDULE HD. -FALL,SAFETY AND ASPIRATION PRECAUTION OBSERVED, NO FACIAL GRIMACE, NO SIGN OF RESPIRATORY DISCOMFORT, NO SOB.KEPT ON CLOSE WATCH.
[2021-07-13 20:00] VITALS: BP 121/65
--- NOTE | 2021-07-13 21:52 | NUR ---
RN NOTES; BLOOD SUGAR [id number], WILL CONTINUE TO MONITOR FOR ANY SIGN OF HYPER/HYPOGLYCEMIA.
--- NOTE | 2021-07-13 23:18 | NUR ---
RN NOTES: WHILE PATIENT WAS TURNED AND REPOSITION, AND HIS CONDOM WAS FIXED AND PUT ON NEW INCONTINENT PAD, HIS HR INCREASE TO 120-140, DUE INDERAL GIVEN ALONG WITH TYLENOL FOR PAIN, HE IS SWEATING IN BETWEEN, KEPT IN COMFORTABLE POSITION, SEMI FOWLERS.
[2021-07-14] VITALS: BP 117/79
[2021-07-14] MEDS: NEPRO 1,000 ML BOTTLE GT SCH (03:40)
[2021-07-14 04:00] VITALS: BP 115/81
[2021-07-14] MEDS: IV D5W 1,000 ML IV PRN (04:37)
--- NOTE | 2021-07-14 04:38 | NUR ---
RN NOTES; IVF CONSUMED, NEW BOTTLE OF D5%W AT 100 ML/HR STARTED.
[2021-07-14] MEDS: MEROPENEM 500 MG in IV NS 0.9% 50 ML IV SCH ×2 (05:01→17:03)
[2021-07-14] MEDS: PROPRANOLOL HCL 10 MG TABLET GT SCH ×4 (05:02→23:09)
[2021-07-14] MEDS ORDERED: VANCOMYCIN 500 MG in IV D5W 100 ML IV PRN (06:00)
[2021-07-14 06:55] LABS: BASOPHILS # (AUTO) 0.1 K/uL (0.0-0.2); BASOPHILS % (AUTO) 0.9 % (0.0-2.0); EOSINOPHILS % (AUTO) 1.7 % (0.0-6.0); HEMATOCRIT 28 % (39-51); HEMOGLOBIN 8.8 g/dL (13.5-17.5); LYMPHOCYTES # (AUTO) 1.2 K/uL (0.8-4.8); LYMPHOCYTES % (AUTO) 12.7 % (20.0-44.0); MEAN CORPUSCULAR HGB CONC 31 g/dl (31.0-36.0); MEAN CORPUSCULAR VOLUME 76 fL (80-96); MONOCYTES % (AUTO) 10.1 % (2.0-12.0); NEUTROPHILS # (AUTO) 7.2 K/uL (1.8-8.9); NEUTROPHILS % (AUTO) 74.6 % (43.0-81.0); PLATELET COUNT (AUTO) 195 K/uL (150-450); RED BLOOD CELL COUNT(AUTO) 3.75 MIL/uL (4.5-6.0); WHITE BLOOD COUNT (AUTO) 9.7 K/uL (4.3-11.0)
[2021-07-14 07:30] LABS: BILIRUBIN,TOTAL 0.3 mg/dL (0.2-1.0); CALCIUM, SERUM 9.2 mg/dL (8.5-10.1); CREATININE 1.8 mg/dL (0.6-1.3); POTASSIUM 3.7 mmol/L (3.5-5.1); TOTAL PROTEIN, SERUM 9.1 g/dL (6.4-8.2)
--- NOTE | 2021-07-14 07:38 | NUR ---
RN OPENING NOTE Patient is awake, non-verba, not oriented as baseline, On mechanical vent tolerating settings well. Telereadin sinus tach. Enteral feeding 45cc/hr, NIKKI midline with no s/sx of infiltration running D5W @100cc/hr. No s/sx of hyperglycemia/hypoglycemia. Safety precautions implemented, bed locked in lowest position, call light within reach.
--- NOTE | 2021-07-14 07:46 | NUR ---
RN NOTES: MORNING CARE DONE, REPOSITIONING DONE, REMAINS AFEBRILE THROUGHOUT THE SHIFT, HE IS PERSPIRING A LOT, IVF ON GOING, PEG FEEDING ON GOING,ENDORSED FOR CONTINUITY OF CARE.
[2021-07-14 08:00] VITALS: BP 120/74
[2021-07-14] MEDS: CHLORHEXIDINE GLUCONATE 15 ML UDC MM SCH ×2 (08:23→21:46)
[2021-07-14] MEDS: FERROUS SULFATE (325 MG) 325 MG/TAB TABLET PO SCH ×3 (08:24→17:02)
[2021-07-14] MEDS: DOCUSATE SODIUM LIQ 100 MG/10 ML UDC GT SCH (08:24)
[2021-07-14] MEDS: BLOOD SUGAR DIAGNOSTIC 1 EACH STRIP IN SCH ×4 (08:24→21:55)
[2021-07-14] MEDS: PANTOPRAZOLE 40 MG/PACK PACK GT SCH (08:24)
[2021-07-14] MEDS: QUETIAPINE FUMARATE 25 MG TABLET GT SCH ×2 (08:24→17:02)
[2021-07-14] MEDS: VALPROIC ACID 250 MG/5 ML UDC GT SCH ×3 (08:27→17:02)
[2021-07-14] MEDS: CLOTRIMAZOLE 1% 15 GM TUBE TP SCH ×2 (08:30→17:02)
[2021-07-14] MEDS: Z GUARD REMEDY 2 OZ OINT TP SCH (08:30)
[2021-07-14] MEDS: DAKINS QUARTER STRENGTH (0.125%) 480 ML BOTTLE TOP SCH (08:30)
[2021-07-14 12:00] VITALS: BP 168/60
[2021-07-14 16:00] VITALS: BP 140/70
[2021-07-14] MEDS: ACETAMINOPHEN 325 MG TABLET PO PRN ×2 (16:38→23:09)
--- NOTE | 2021-07-14 19:24 | NUR ---
RN CLOSING NOTE Patient is awake, non-verbal, not oriented as baseline, On mechanical vent tolerating settings well. Telereadin sinus tach. Enteral feeding 45cc/hr, NIKKI midline with no s/sx of infiltration. No s/sx of hyperglycemia/hypoglycemia. Safety precautions implemented, bed locked in lowest position, call light within reach. 0700-117mg/dl, no insulin per protocol. 1200-105mg/dl, no insulin per protocol 1700-110mg/dl, no insulin per protocol.
[2021-07-14 20:00] VITALS: BP 132/74
--- NOTE | 2021-07-14 20:00 | NUR ---
RN NOTE PATIENT OBTUNDED IN BED. ON TRACH TO VENT, TOLERATING SETTINGS WELL. O2 SAT 100%. HR 80'S-110'S ON MONITOR. GTUBE RUNNING NEPRHO @ 45ML/HR, NO RESIDUAL NOTED. HEAD OF BED KEPT ELEVATED. IV ACCESS ON NIKKI MIDLINE PATENT AND INTACT. NO S/S OF INFILTRATION. BED LOCKED AND IN LOWEST POSITION. CALL LIGHT WITHIN REACH. ALL NEEDS ANTICIPATED.
[2021-07-14] MEDS: INSULIN REGULAR, HUMAN 100 UNIT/ML 3 ML VIAL SQ PRN (21:55)
[2021-07-15] VITALS: BP 114/61
[2021-07-15 04:00] VITALS: BP 132/66
[2021-07-15] MEDS: MEROPENEM 500 MG in IV NS 0.9% 50 ML IV SCH ×2 (05:02→17:04)
[2021-07-15] MEDS: PROPRANOLOL HCL 10 MG TABLET GT SCH ×3 (05:03→17:03)
[2021-07-15 06:37] LABS: BASOPHILS # (AUTO) 0.2 K/uL (0.0-0.2); BASOPHILS % (AUTO) 2.8 % (0.0-2.0); EOSINOPHILS % (AUTO) 4.8 % (0.0-6.0); HEMATOCRIT 29 % (39-51); HEMOGLOBIN 9.1 g/dL (13.5-17.5); LYMPHOCYTES # (AUTO) 1.4 K/uL (0.8-4.8); MEAN CORPUSCULAR HGB CONC 32 g/dl (31.0-36.0); MEAN CORPUSCULAR VOLUME 74 fL (80-96); MONOCYTES # (AUTO) 0.8 K/uL (0.1-1.30); MONOCYTES % (AUTO) 11.2 % (2.0-12.0); NEUTROPHILS # (AUTO) 4.6 K/uL (1.8-8.9); NEUTROPHILS % (AUTO) 62.2 % (43.0-81.0); PLATELET COUNT (AUTO) 198 K/uL (150-450); RED BLOOD CELL COUNT(AUTO) 3.85 MIL/uL (4.5-6.0); WHITE BLOOD COUNT (AUTO) 7.3 K/uL (4.3-11.0)
[2021-07-15 06:47] LABS: ALBUMIN 3.3 g/dL (3.4-5.0); BILIRUBIN,TOTAL 0.3 mg/dL (0.2-1.0); CALCIUM, SERUM 9.4 mg/dL (8.5-10.1); CREATININE 1.8 mg/dL (0.6-1.3); TOTAL PROTEIN, SERUM 9.6 g/dL (6.4-8.2)
--- NOTE | 2021-07-15 06:52 | NUR ---
RN NOTE PATIENT OBTUNDED IN BED. ON TRACH TO VENT, TOLERATING SETTINGS WELL. O2 SAT 100%. GTUBE RUNNING NEPRHO @ 45ML/HR, NO RESIDUAL NOTED. HEAD OF BED KEPT ELEVATED. IV ACCESS ON NIKKI MIDLINE PATENT AND INTACT. NO S/S OF INFILTRATION. KEPT CLEAN AND DRY, TURNED AND REPOSITIONED. BED LOCKED AND IN LOWEST POSITION. CALL LIGHT WITHIN REACH. WILL ENDORSE TO AM SHIFT.
--- NOTE | 2021-07-15 07:35 | NUR ---
RN OPENING NOTE Patient is obtunded, on mechanical vent tolerating settings well. No respiratory distress, no SOB. Skin is warm and dry. On nephro 45cc/hr. Rught upper arm midline in place with no s/sx of infiltration. Sinus tach. Clean dressing on scalp, back of head. Safety precautions implemented, bed locked in lowest position, call light within reach.
[2021-07-15 08:00] VITALS: BP 136/86
[2021-07-15] MEDS: PANTOPRAZOLE 40 MG/PACK PACK GT SCH (08:51)
[2021-07-15] MEDS: VALPROIC ACID 250 MG/5 ML UDC GT SCH ×3 (08:51→17:03)
[2021-07-15] MEDS: FERROUS SULFATE (325 MG) 325 MG/TAB TABLET PO SCH ×3 (08:51→17:03)
[2021-07-15] MEDS: CHLORHEXIDINE GLUCONATE 15 ML UDC MM SCH (08:51)
[2021-07-15] MEDS: DOCUSATE SODIUM LIQ 100 MG/10 ML UDC GT SCH (08:51)
[2021-07-15] MEDS: QUETIAPINE FUMARATE 25 MG TABLET GT SCH ×2 (08:51→17:03)
[2021-07-15] MEDS: BLOOD SUGAR DIAGNOSTIC 1 EACH STRIP IN SCH ×3 (08:51→17:03)
[2021-07-15] MEDS: DAKINS QUARTER STRENGTH (0.125%) 480 ML BOTTLE TOP SCH (08:52)
[2021-07-15] MEDS: CLOTRIMAZOLE 1% 15 GM TUBE TP SCH ×2 (08:52→17:04)
[2021-07-15] MEDS: Z GUARD REMEDY 2 OZ OINT TP SCH (08:52)
[2021-07-15] MEDS ORDERED: FERR325T28 PO (10:20)
[2021-07-15 12:00] VITALS: BP 127/80
[2021-07-15 16:00] VITALS: BP 148/101
[2021-07-15 17:03] VITALS: BP 148/101
[2021-07-15] MEDS: ACETAMINOPHEN 325 MG TABLET PO PRN (17:46)
--- NOTE | 2021-07-15 19:32 | NUR ---
RN CLOSING NOTES Patient is alert to stimuli, not oriented, non-responsive as baseline. On mechanical vent tolerating settings well. No respiratory distress, no SOB. Enteral feeding nephro @45cc.hr, flushed with 100cc q4h, right upper arm midline with no s/sx of infiltration. No s/sx of hyperglycemia/hypoglycemia. AM/PM care rendered, wound care rendered. Safety precautions implemented, bed locked in lowest position, call light within reach. 0730-100mg/dl, no insulin coverage 1230-109mg/dl, no insulin coverage 1700-103mg/dl, no insulin coverage 1700-103mg/dl, no insulin coverage D/C Patient to [facility], gave report to Staci PAREKH, medication list and discharge teaching done.
== END 2021-07-15 20:37 | DRG 130 ==
LOC: ER 16:58 → TELE-TD 19:32 → TELE1 07-02 10:51
PROVIDERS: ADMIT Internal Medicine; ATTEND Internal Medicine
PROC: 5A1955Z Respiratory Ventilation, Greater than 96 Consecutive Hours (ICD-10-PCS; principal; 2021-07-01)
PROC: 5A1D70Z Performance of Urinary Filtration, Intermittent, Less than 6 Hours Per Day (ICD-10-PCS; 2021-07-02)
PROC: 0JB00ZZ Excision of Scalp Subcutaneous Tissue and Fascia, Open Approach (ICD-10-PCS; 2021-07-10)
DX: J95.851 Ventilator associated pneumonia (principal); A41.50 Gram-negative sepsis, unspecified; G93.41 Metabolic encephalopathy; E43 Unspecified severe protein-calorie malnutrition; T80.211A Bloodstream infection due to central venous catheter, initial encounter; N17.9 Acute kidney failure, unspecified; R53.2 Functional quadriplegia; J96.10 Chronic respiratory failure, unspecified whether with hypoxia or hypercapnia; E87.0 Hyperosmolality and hypernatremia; I12.0 Hypertensive chronic kidney disease with stage 5 chronic kidney disease or end stage renal disease; N18.6 End stage renal disease; D63.1 Anemia in chronic kidney disease; E83.39 Other disorders of phosphorus metabolism; L89.813 Pressure ulcer of head, stage 3; Z99.2 Dependence on renal dialysis; E11.29 Type 2 diabetes mellitus with other diabetic kidney complication; Y84.8 Other medical procedures as the cause of abnormal reaction of the patient, or of later complication, without mention of misadventure at the time of the procedure; Z99.11 Dependence on respirator [ventilator] status; Z20.822 Contact with and (suspected) exposure to COVID-19; N32.9 Bladder disorder, unspecified; Z93.0 Tracheostomy status; Z93.1 Gastrostomy status; R13.10 Dysphagia, unspecified; Z79.899 Other long term (current) drug therapy; D50.9 Iron deficiency anemia, unspecified; D75.839 Thrombocytosis, unspecified; M89.9 Disorder of bone, unspecified; N30.90 Cystitis, unspecified without hematuria; L89.90 Pressure ulcer of unspecified site, unspecified stage; B96.89 Other specified bacterial agents as the cause of diseases classified elsewhere; B96.1 Klebsiella pneumoniae [K. pneumoniae] as the cause of diseases classified elsewhere; R80.9 Proteinuria, unspecified; R74.8 Abnormal levels of other serum enzymes; E87.6 Hypokalemia
CPT/HCPCS: 31720; 36415; 71045-TC; 71250-TC; 80048-TC; 80053-TC; 80076-TC; 80202-TC; 81001; 82728-TC; 82962-TC; 83540-TC; 83605-TC; 83735-TC; 83970; 84100-TC; 84484-TC; 84520-TC; 85025-TC; 85730-TC; 86706; 86803; 87040-TC; 87070-TC; 87081-TC; 87086-TC; 87186-TC; 87340; 87806; 90935-TC; 94002-TC; 94003-TC; 94760-TC; 94762-TC; 94799-TC; 99082-TC; A4217; A4349; A4623; A6253; A6403; A7526; G0378; J0360; J0692; J1644; J1815; J2185; J2270; J2543; J2916; J3370; J3480; J3490; J7030; J7040; J7050; J7060; J7070; U0003

== ENCOUNTER 2022-06-06 09:03 | Inpatient (IN) | payer MEDICARE, OTHER ==
[~2022-06-06] VITALS: Ht 172.7 cm; Wt 58.5 kg
[2022-06-06] VITALS: BP 110/70
[~2022-06-06 09:03] MED LIST: ACET-868 GT; CHLO473M5 MM; DOCU50LI GT; FERR325T28 PO; GUAN1TAB GT; MENT71OI2 TP; NUT.237L67 GT; PANT40SU2 GT; PROP20TA7 GT; QUET25TA GT; SEVE0.8P GT; VALP250S4 GT
--- NOTE | 2022-06-06 09:05 | NUR ---
[id number] FRM [facility] FOR DISLODGED TRACHEOSTOMY, PER REPORT WAS DISLODGED LAST NIGHT. SATTING 97% ON RA ECONOMICS INSTRUCTOR. TO ER BED 12, HOOKED TO MONITOR, CHANGED TO HOSP GOWN, WARM BLANKET PROVIDED. AWAITING MD GANDHI
--- NOTE | 2022-06-06 09:11 | NUR ---
DR SHARMA AT BEDSIDE
--- NOTE | 2022-06-06 09:15 | NUR ---
CALLED DR. JOY [phone] WILL BE PAGED PER LV
--- NOTE | 2022-06-06 09:18 | NUR ---
DR. ANYA JOY SPEAKING WITH DR. SHARMA.
--- NOTE | 2022-06-06 09:55 | NUR ---
MOHAN [phone]
[2022-06-06] MEDS ORDERED: CT SWABBABLE VALVE TRANS SET 1 EA INFUS.SET MC ONE (09:58)
[2022-06-06] MEDS ORDERED: IOHEXOL-300 100 ML VIAL IV ONE (09:58)
[2022-06-06 10:04] LABS: BASOPHILS % (AUTO) 0.3 % (0.0-2.0); EOSINOPHILS % (AUTO) 4.7 % (0.0-6.0); HEMATOCRIT 47 % (39-51); HEMOGLOBIN 14.7 g/dL (13.5-17.5); LYMPHOCYTES # (AUTO) 1.4 K/uL (0.8-4.8); LYMPHOCYTES % (AUTO) 18.6 % (20.0-44.0); MEAN CORPUSCULAR HGB CONC 31 g/dl (31.0-36.0); MEAN CORPUSCULAR VOLUME 83 fL (80-96); MONOCYTES # (AUTO) 1.2 K/uL (0.1-1.30); MONOCYTES % (AUTO) 16.2 % (2.0-12.0); NEUTROPHILS # (AUTO) 4.5 K/uL (1.8-8.9); NEUTROPHILS % (AUTO) 60.2 % (43.0-81.0); PLATELET COUNT (AUTO) 253 K/uL (150-450); RED BLOOD CELL COUNT(AUTO) 5.64 MIL/uL (4.5-6.0); WHITE BLOOD COUNT (AUTO) 7.4 K/uL (4.3-11.0)
--- NOTE | 2022-06-06 10:05 | NUR ---
CALLED DR. JOYNER ADULT CROSSING GUARD [phone] TO CALL US BACK.
[2022-06-06 10:12] LABS: CALCIUM, SERUM 9.3 mg/dL (8.5-10.1); CARBON DIOXIDE 30 mmol/L (21-32); CHLORIDE 101 mmol/L (98-107); CREATININE 0.8 mg/dL (0.6-1.3); GLUCOSE 97 mg/dL (74-106); POTASSIUM 4.6 mmol/L (3.5-5.1); SODIUM SERUM 137 mmol/L (136-145); UREA NITROGEN, BLOOD 18 mg/dL (7-18)
[2022-06-06 10:18] LABS: ALANINE AMINOTRANSFERASE 35 U/L (12-78); ALBUMIN 3.1 g/dL (3.4-5.0); ALKALINE PHOSPHATASE 136 U/L (46-116); ASPARTATE AMINOTRANSFERASE 26 U/L (15-37); BILIRUBIN,DIRECT 0.1 mg/dL (0.0-0.2); BILIRUBIN,TOTAL 0.3 mg/dL (0.2-1.0); TOTAL PROTEIN, SERUM 9.5 g/dL (6.4-8.2)
[2022-06-06] MEDS ORDERED: LORA-259 GT (10:27)
[2022-06-06] MEDS ORDERED: CALC500T52 GT (10:27)
[2022-06-06] MEDS ORDERED: AMIN887L GT (10:27)
[2022-06-06] MEDS ORDERED: CHOL400C8 GT (10:27)
[2022-06-06] MEDS ORDERED: LACT-209 GT (10:27)
[2022-06-06] MEDS ORDERED: CLON0.5T GT (10:27)
[2022-06-06] MEDS ORDERED: MULT-134 GT (10:27)
[2022-06-06] MEDS ORDERED: ESCI10TA GT (10:27)
[2022-06-06] MEDS ORDERED: BACL10TA GT (10:27)
[2022-06-06] MEDS ORDERED: IPRA3AMP23 IH (10:27)
[2022-06-06] MEDS ORDERED: MAGN400O6 GT (10:27)
[2022-06-06] MEDS ORDERED: FERR325T23 GT (10:27)
--- NOTE | 2022-06-06 10:30 | NUR ---
COVID SWAB COLLECTED AND SENT TO LAB
[2022-06-06 12:04] LABS: BAND % (MANUAL) 1 % (0.0-5.0); EOSINOPHILS % (MANUAL) 2 % (0-4); LYMPHOCYTES % (MANUAL) 16 % (16-48); MONOCYTES % (MANUAL) 10 % (0-11.0); NEUTROPHILS % (MANUAL) 71 (42-76)
[2022-06-06] MEDS ORDERED: IV NS 0.9% 1,000 ML IV ONE (12:30)
[2022-06-06] MEDS ORDERED: Z GUARD REMEDY 4 OZ OINT TP PRN (13:30)
[2022-06-06] MEDS ORDERED: ONDANSETRON HCL/PF 4 MG/2 ML VIAL IVP PRN (13:30)
[2022-06-06] MEDS ORDERED: MAGNESIUM HYDROXIDE 30 ML UDC GT PRN (13:30)
[2022-06-06] MEDS ORDERED: IPRATROPIUM NEB FS 0.5 MG/2.5 ML AMPUL.NEB NEB PRN (14:30)
[2022-06-06] MEDS ORDERED: ALBUTEROL FS 2.5 MG/3 ML VIAL.NEB NEB PRN (14:30)
--- NOTE | 2022-06-06 15:34 | NUR ---
PETRA BETH [facility] [phone]
[2022-06-06] MEDS ORDERED: LEVOFLOXACIN 500 MG /D5W 100ML 100 ML IV ONE (16:11)
[2022-06-06] MEDS: LEVOFLOXACIN 500 MG /D5W 100ML 100 ML IV SCH (16:20)
[2022-06-06] MEDS: QUETIAPINE FUMARATE 25 MG TABLET GT SCH (17:00)
[2022-06-06] MEDS: clonazePAM 0.5 MG TABLET GT SCH (17:00)
[2022-06-06] MEDS ORDERED: clonazePAM 0.5 MG TABLET ONE (17:42)
[2022-06-06] MEDS: PROSOURCE / PROSTAT (PYXIS) 30 ML UDC GT SCH (17:51)
[2022-06-06] MEDS ORDERED: QUETIAPINE FUMARATE 25 MG TABLET ONE (17:53)
[2022-06-06] MEDS ORDERED: BACLOFEN (10 MG) 10 MG TABLET ONE (18:24)
--- NOTE | 2022-06-06 18:29 | NUR ---
ZABRINA [phone]
[2022-06-06] MEDS: BACLOFEN (10 MG) 10 MG TABLET GT SCH ×2 (18:45→23:33)
--- NOTE | 2022-06-06 19:33 | NUR ---
ENDORSEMENT GIVEN TO TED PAREKH FOR CONTINUITY OF CARE
--- NOTE | 2022-06-06 20:59 | NUR ---
REPORT GIVEN TO IZABELLA PEREZ FOR JOSE L
[2022-06-06] MEDS: CHLORHEXIDINE GLUCONATE 15 ML UDC MM SCH (21:00)
--- NOTE | 2022-06-06 22:17 | NUR ---
PT BEING TRANSPORTED TO UNIT ON [facility] WITH EMT AND RN AT BEDSIDE W. ACLS PROTOCOL. NAD NOTED DURING TRANSPORT.
--- NOTE | 2022-06-06 22:20 | NUR ---
RN ADMITTING NOTE RECEIVED PATIENT FROM ER VIA GURNEY ACCOMPANIED BY 2 ER STAFF, TRANSFERRED TO BED VIA 2 PERSON ASSIST. PATIENT IS NON VERBAL, OPENS EYES SPONTANEOUSLY, BREATHING IS EVEN AND UNLABORED, SATURATION AT 97% ON 2L VIA NC, ST ON THE MONITOR, HR IS 105. IV LINE AT RAC 20G PATENT AND FLUSHING WELL, SALINE LOCKED. GTUBE IN PLACE, POSITIVE PLACEMENT NOTED. GORMAN CATHETER DRAINING TO A CLEAR, YELLOW OUTPUT. COMPREHENSIVE ASSESSMENT DONE, NOTED REDNESS AT SACRUM, GENERALIZED RASHES, TRACH SITE DRY, GTUBE SITE OPEN, PHOTOS TAKEN AND PLACED IN CHART. SAFETY MEASURES IN PLACE, BED IS LOCKED AND AT LOWEST POSITION, SIDE RAILS UP X 3, WILL CONTINUE TO MONITOR AND CARRY OUT MD ORDERS.
--- NOTE | 2022-06-06 23:00 | NUR ---
RN NOTE PATIENT AGITATED AND KEEPS MOVING B ARMS. PT WAS NOTED TO HAVE SELF DECANNULATED THIS AM FROM FACILITY PER REPORT. DR VEGA WAS NOTIFIED. ORDERS RECEIVED FOR B SOFT WRIST RESTRAINTS.
--- NOTE | 2022-06-06 23:01 | NUR ---
RN NOTE PER DR SILVIA KAUR TO START TUBE FEEDING. PT ON JEVITY 1.2 AT 70ML/HR X 20 HOURS FROM FACILITY
[2022-06-06] MEDS ORDERED: JEVITY 1.2 CAL 1,000 ML BOTTLE GT PRN (23:30)
[2022-06-06] MEDS: LORAZEPAM 1 MG TABLET GT PRN (23:32)
[2022-06-07] VITALS: BP 110/70
[2022-06-07 04:00] VITALS: BP 126/92
[2022-06-07] MEDS: BACLOFEN (10 MG) 10 MG TABLET GT SCH ×3 (05:50→17:47)
[2022-06-07 06:34] LABS: BASOPHILS % (AUTO) 0.2 % (0.0-2.0); EOSINOPHILS % (AUTO) 0.8 % (0.0-6.0); HEMATOCRIT 40 % (39-51); HEMOGLOBIN 12.8 g/dL (13.5-17.5); LYMPHOCYTES % (AUTO) 14.7 % (20.0-44.0); MEAN CORPUSCULAR HGB CONC 32 g/dl (31.0-36.0); MEAN CORPUSCULAR VOLUME 81 fL (80-96); MONOCYTES # (AUTO) 1.4 K/uL (0.1-1.30); MONOCYTES % (AUTO) 20.5 % (2.0-12.0); NEUTROPHILS # (AUTO) 4.3 K/uL (1.8-8.9); NEUTROPHILS % (AUTO) 63.8 % (43.0-81.0); PLATELET COUNT (AUTO) 256 K/uL (150-450); RED BLOOD CELL COUNT(AUTO) 4.91 MIL/uL (4.5-6.0); WHITE BLOOD COUNT (AUTO) 6.7 K/uL (4.3-11.0)
[2022-06-07 06:52] LABS: CALCIUM, SERUM 9.3 mg/dL (8.5-10.1); CREATININE 0.8 mg/dL (0.6-1.3); MAGNESIUM 2.2 mg/dL (1.8-2.4); PHOSPHORUS 3.2 mg/dL (2.5-4.9)
--- NOTE | 2022-06-07 07:15 | NUR ---
RN OPENING NOTES RECEIVED PATIENT REPORT FROM NIGHTSHIFT. PATIENT IN BED ON 2 LITERS NASAL CANULA WITH OXYGEN SATURATION AT 98%. TRACH SITE DRESSING NOTED. PATIENT ALERT AND ORIENTED TIMES 1, NON VERBAL. CURRENT TELEMETRY MONITORING SHOWING NORMAL SINUS RHYTHM. GORMAN CATHETER ATTACHED DRAINING URINE. BILATERAL SOFT RESTRAINTS NOTED, DISTAL CIRCULATION IS WITHIN NORMAL LIMITS. GASTRIC TUBE RUNNING JEVITY 1.2 AT 60 MLS/HR, NO RESIDUAL. IV ACCESS ON RIGHT ANTECUBITAL 20 GAUGE. SAFETY MEASURES IMPLEMENTED BED IN LOWEST LOCKED POSITION, SIDE RAILS UP TIMES 2, CALL LIGHT WITHIN REACH. WILL CONTINUE PLAN OF CARE AND ANTICIPATE NEEDS.
--- NOTE | 2022-06-07 07:31 | NUR ---
RN NOTE TELEPHONE CALL TO [facility] [phone] TO VERIFY CODE STATUS, SPOKE WITH ZULEMA, STATED PATIENT IS FULL CODE. SHE SAID SHE WILL FAX OVER COPY OF DOCUMENT. PROVIDED HER WITH JOHNNIE FAX NUMBER
[2022-06-07 08:00] VITALS: BP 120/81
[2022-06-07] MEDS: CHLORHEXIDINE GLUCONATE 15 ML UDC MM SCH ×2 (08:44→21:07)
[2022-06-07] MEDS: clonazePAM 0.5 MG TABLET GT SCH ×2 (08:44→17:47)
[2022-06-07] MEDS: CALCIUM CARBONATE (1250) 500 MG TABLET GT SCH (08:44)
[2022-06-07] MEDS: ESCITALOPRAM OXALATE (10 MG) 10 MG TABLET GT SCH (08:44)
[2022-06-07] MEDS: FERROUS SULFATE (325 MG) 325 MG/TAB TABLET GT SCH (08:44)
[2022-06-07] MEDS: DOCUSATE SODIUM LIQ 100 MG/10 ML UDC GT SCH (08:44)
[2022-06-07] MEDS: MULTIVIT W/MINERALS 1 TAB TABLET GT SCH (08:44)
[2022-06-07] MEDS: PANTOPRAZOLE 40 MG/PACK PACK GT SCH (08:45)
[2022-06-07] MEDS: CHOLECALCIFEROL 1,000 UNIT TABLET (VIT D3) GT SCH (08:45)
[2022-06-07] MEDS: QUETIAPINE FUMARATE 25 MG TABLET GT SCH ×2 (08:45→17:47)
[2022-06-07] MEDS: ENOXAPARIN SODIUM 40 MG/0.4 ML DISP.SYRIN SQ SCH (08:47)
[2022-06-07] MEDS: PROSOURCE / PROSTAT (PYXIS) 30 ML UDC GT SCH ×3 (08:48→17:47)
[2022-06-07 09:51] LABS: LYMPHOCYTES % (MANUAL) 19 % (16-48); MONOCYTES % (MANUAL) 13 % (0-11.0); NEUTROPHILS % (MANUAL) 68 (42-76)
[2022-06-07] MEDS: ACETYLCYSTEINE 10% SOLN 400 MG/4 ML VIAL NEB SCH ×2 (10:30→16:01)
[2022-06-07 12:00] VITALS: BP 110/69
[2022-06-07] MEDS: LEVOFLOXACIN 500 MG /D5W 100ML 100 ML IV SCH (13:58)
[2022-06-07] MEDS: LORAZEPAM 1 MG TABLET GT PRN ×2 (14:32→21:09)
[2022-06-07 16:00] VITALS: BP 132/87
--- NOTE | 2022-06-07 18:48 | NUR ---
RN CLOSING NOTES PATIENT IN BED ON 2 LITERS NASAL CANULA WITH OXYGEN SATURATION AT 98%. TRACH SITE DRESSING NOTED. PATIENT ALERT AND ORIENTED TIMES 1, NON VERBAL. CURRENT TELEMETRY MONITORING SHOWING NORMAL SINUS RHYTHM. GORMAN CATHETER ATTACHED DRAINING URINE, OUTPUT OF 300 DURING SHIFT. BILATERAL SOFT RESTRAINTS NOTED, DISTAL CIRCULATION IS WITHIN NORMAL LIMITS. GASTRIC TUBE RUNNING JEVITY 1.2 AT 60 MLS/HR, NO RESIDUAL. IV ACCESS ON LEFT HAND 20 GAUGE. SAFETY MEASURES IMPLEMENTED BED IN LOWEST LOCKED POSITION, SIDE RAILS UP TIMES 2, CALL LIGHT WITHIN REACH. WILL ENDORSE TO NIGHTSHIFT FOR CONTINUATION OF CARE.
--- NOTE | 2022-06-07 19:00 | NUR ---
RN NOTE PATIENT IN BED, AO X1, NON VERBAL, OPENS EYES SPONTANEOUSLY, ABLE TO SQUEEZE RIGHT HAND WHEN ASKED, BREATHING IS EVEN AND UNLABORED, SATURATION AT 95% ON ROOM AIR, ST ON THE MONITOR, HR IS 131. IV LINE AT L HAND 20G PATENT AND FLUSHING WELL, SALINE LOCKED. GTUBE IN PLACE, POSITIVE PLACEMENT NOTED WITH TUBE FEEDING OF JEVITY AT 60 ML/HR. GORMAN CATHETER DRAINING TO A CLEAR, YELLOW OUTPUT. SAFETY MEASURES IN PLACE, BED IS LOCKED AND AT LOWEST POSITION, SIDE RAILS UP X 3, WILL CONTINUE TO MONITOR AND REASSES.
[2022-06-07 21:00] VITALS: BP 142/93
[2022-06-07] MEDS: ACETAMINOPHEN 325 MG TABLET PO PRN (21:09)
[2022-06-08] VITALS: BP 133/85
[2022-06-08] MEDS: BACLOFEN (10 MG) 10 MG TABLET GT SCH ×5 (00:39→23:27)
[2022-06-08 04:00] VITALS: BP 141/91
[2022-06-08] MEDS: LORAZEPAM 1 MG TABLET GT PRN ×3 (04:11→23:27)
[2022-06-08] MEDS: JEVITY 1.2 CAL 1,000 ML BOTTLE GT PRN ×2 (04:13→09:02)
[2022-06-08 07:12] LABS: CALCIUM, SERUM 9.4 mg/dL (8.5-10.1); CREATININE 0.9 mg/dL (0.6-1.3); POTASSIUM 3.7 mmol/L (3.5-5.1)
[2022-06-08 07:27] LABS: BASOPHILS % (AUTO) 0.3 % (0.0-2.0); EOSINOPHILS % (AUTO) 1.8 % (0.0-6.0); HEMATOCRIT 43 % (39-51); HEMOGLOBIN 13.6 g/dL (13.5-17.5); LYMPHOCYTES # (AUTO) 0.9 K/uL (0.8-4.8); LYMPHOCYTES % (AUTO) 14.2 % (20.0-44.0); MEAN CORPUSCULAR HGB CONC 32 g/dl (31.0-36.0); MEAN CORPUSCULAR VOLUME 81 fL (80-96); MONOCYTES % (AUTO) 16.4 % (2.0-12.0); NEUTROPHILS # (AUTO) 4.1 K/uL (1.8-8.9); NEUTROPHILS % (AUTO) 67.3 % (43.0-81.0); PLATELET COUNT (AUTO) 250 K/uL (150-450); RED BLOOD CELL COUNT(AUTO) 5.22 MIL/uL (4.5-6.0); WHITE BLOOD COUNT (AUTO) 6.1 K/uL (4.3-11.0)
--- NOTE | 2022-06-08 07:37 | NUR ---
RN OPENING NOTES RECEIVED PATIENT REPORT FROM NIGHTSHIFT. PATIENT IN BED ON 2 LITERS NASAL CANULA WITH OXYGEN SATURATION AT 97%.PATIENT HAS TRACHEOSTOMY THAT CLOSED , PATIENT ALERT AND ORIENTED TIMES 1, NON VERBAL. CURRENT TELEMETRY MONITORING SHOWING NORMAL SINUS RHYTHM. GORMAN CATHETER ATTACHED DRAINING URINE. BILATERAL SOFT RESTRAINTS NOTED, DISTAL CIRCULATION IS WITHIN NORMAL LIMITS. GASTRIC TUBE RUNNING JEVITY 1.2 AT 60 MLS/HR, NO RESIDUAL. IV ACCESS ON LEFT HAND 20 GAUGE. SAFETY MEASURES IMPLEMENTED BED IN LOWEST LOCKED POSITION, SIDE RAILS UP TIMES 2, CALL LIGHT WITHIN REACH. WILL CONTINUE PLAN OF CARE AND ANTICIPATE NEEDS.
[2022-06-08] MEDS: ACETYLCYSTEINE 10% SOLN 400 MG/4 ML VIAL NEB SCH ×2 (07:41→16:55)
--- NOTE | 2022-06-08 07:43 | NUR ---
URINE COLLECTED, PLACED IN FRIDGE. ROLAN PAREKH MADE AWARE
[2022-06-08 08:00] VITALS: BP 133/82
[2022-06-08] MEDS: ESCITALOPRAM OXALATE (10 MG) 10 MG TABLET GT SCH (09:00)
[2022-06-08] MEDS: MULTIVIT W/MINERALS 1 TAB TABLET GT SCH (09:00)
[2022-06-08] MEDS: CHLORHEXIDINE GLUCONATE 15 ML UDC MM SCH ×2 (09:00→20:42)
[2022-06-08] MEDS: DOCUSATE SODIUM LIQ 100 MG/10 ML UDC GT SCH (09:00)
[2022-06-08] MEDS: ENOXAPARIN SODIUM 40 MG/0.4 ML DISP.SYRIN SQ SCH (09:00)
[2022-06-08] MEDS: FERROUS SULFATE (325 MG) 325 MG/TAB TABLET GT SCH (09:01)
[2022-06-08] MEDS: CALCIUM CARBONATE (1250) 500 MG TABLET GT SCH (09:01)
[2022-06-08] MEDS: CHOLECALCIFEROL 1,000 UNIT TABLET (VIT D3) GT SCH (09:01)
[2022-06-08] MEDS: QUETIAPINE FUMARATE 25 MG TABLET GT SCH ×2 (09:01→16:21)
[2022-06-08] MEDS: clonazePAM 0.5 MG TABLET GT SCH ×2 (09:02→16:21)
[2022-06-08] MEDS: PROSOURCE / PROSTAT (PYXIS) 30 ML UDC GT SCH ×3 (09:02→16:21)
[2022-06-08] MEDS: PANTOPRAZOLE 40 MG/PACK PACK GT SCH (09:02)
[2022-06-08 11:19] LABS: BAND % (MANUAL) 1 % (0.0-5.0); LYMPHOCYTES % (MANUAL) 16 % (16-48); MONOCYTES % (MANUAL) 13 % (0-11.0); NEUTROPHILS % (MANUAL) 70 (42-76)
[2022-06-08 12:00] VITALS: BP 133/73
[2022-06-08] MEDS ORDERED: HYDROCORTISONE 0.5% CREAM 28.35 GM TUBE TP PRN (12:00)
[2022-06-08] MEDS: LEVOFLOXACIN 500 MG /D5W 100ML 100 ML IV SCH (14:18)
[2022-06-08] MEDS: ACETAMINOPHEN 325 MG TABLET PO PRN (15:26)
[2022-06-08 16:00] VITALS: BP 114/77
--- NOTE | 2022-06-08 16:43 | NUR ---
RN NOTE PATIENT'S SISTER CALLED WITH THE REQUEST TO DISCHARGE PATIENT TO THE DIFFERENT FACILITY THAT HE CAME FROM , SISTER NAME PATRICK TEL [phone] , CASE ,SHOP HAND NOTIFIED
--- NOTE | 2022-06-08 18:12 | NUR ---
RN CLOSING NOTES PATIENT IN BED ON 2 LITERS NASAL CANULA WITH OXYGEN SATURATION AT 98%. TRACH SITE DRESSING NOTED. PATIENT ALERT AND ORIENTED TIMES 1, NON VERBAL. CURRENT TELEMETRY MONITORING SHOWING NORMAL SINUS RHYTHM. GORMAN CATHETER ATTACHED DRAINING URINE, OUTPUT OF 1200 DURING SHIFT. BILATERAL SOFT RESTRAINTS NOTED, DISTAL CIRCULATION IS WITHIN NORMAL LIMITS. GASTRIC TUBE RUNNING JEVITY 1.2 AT 60 MLS/HR, NO RESIDUAL. IV ACCESS ON LEFT HAND 20 GAUGE. DURING THE SHIFT PATIENT HAD 3 EPISODES OF DEVELOPING HANDS SHAKING , FACE REDNESS AND TENSION , DR WAS NOTIFIED SAFETY MEASURES IMPLEMENTED BED IN LOWEST LOCKED POSITION, SIDE RAILS UP TIMES 2, CALL LIGHT WITHIN REACH. WILL ENDORSE TO NIGHTSHIFT FOR CONTINUATION OF CARE.
[2022-06-08 18:58] LABS: BILIRUBIN,URINE NEGATIVE (NEGATIVE); COLOR,URINE YELLOW (YELLOW); LEUKOCYTE ESTERASE ,URINE SMALL (NEGATIVE); NITRITE, URINE POSITIVE (NEGATIVE); PROTEIN,URINE NEGATIVE (NEGATIVE); UGLUCOSE NEGATIVE (NEGATIVE); UROBILINOGEN,URINE 0.2 EU/dL (0.2)
--- NOTE | 2022-06-08 19:35 | NUR ---
RN OPENING NOTES: RECEIVED PATIENT IN BED, A/O X1, NON VERBAL, OPENS BOTH EYES. BREATHING IS EVEN AND UNLABORED. ON O2 AT 2L/MIN VIA N/C AND PT TOLERATED WELL. IV ACCESS ON LT HAND #20G INTACT AND PATENT. NO S/S OF INFILTRATIONS. GTUBE FEEDING WELL TOLERATED WELL. GTUBE FEEDING ON JEVITY AT 60 ML/HR. GORMAN CATHETER IN PLACE. DRAINING BY GRAVITY. NOTED YELLOWISH/CLEAR URINE. NO FACIAL GRIMACING NOTED. BILATERAL RESTRAINT ON PLACE. STILL HAS EPISODE OF SHAKING BOTH HAND UNCONTROLLABLY. ALL SAFETY MEASURES IN PLACE. BED IN LOWEST POSITION AND LOCKED, SIDE RAILS UP X 3, PLACE CALL LIGHT WITH IN REACH. WILL CONTINUE TO MONITOR.
[2022-06-08 20:00] VITALS: BP 125/91
[2022-06-08 20:23] LABS: BACTERIA,URINE 3+ /HPF (None Seen); RBC,URINE 51-80 /HPF (0-2); SQUAMOUS EPITHELIAL CELL,UR 0-2 /HPF (None Seen)
[2022-06-08 20:24] LABS: TRIPLE PHOSPHATE CRYSTAL,UR Moderate /HPF (None Seen); URINE AMORPHOUS PHOSPHATES Moderate /HPF (None Seen)
--- NOTE | 2022-06-08 23:35 | NUR ---
RN NOTES: PT HAS EPISODES OF SEVERE AGITATION. ATIVAN 1 MG TAB GIVEN VIA GTUBE AND PT TOLERATED WELL. WILL CONTINUE TO MONITOR
[2022-06-09] VITALS: BP 139/94
[2022-06-09] MEDS: ACETYLCYSTEINE 10% SOLN 400 MG/4 ML VIAL NEB SCH ×4 (00:12→23:57)
[2022-06-09] MEDS: JEVITY 1.2 CAL 1,000 ML BOTTLE GT PRN ×2 (00:47→23:28)
[2022-06-09 04:00] VITALS: BP 138/95
[2022-06-09] MEDS: BACLOFEN (10 MG) 10 MG TABLET GT SCH ×3 (05:07→18:44)
--- NOTE | 2022-06-09 06:34 | NUR ---
RN CLOSING NOTES: PATIENT IN BED, A/O X1, NON VERBAL, OPENS BOTH EYES. BREATHING IS EVEN AND UNLABORED. ON O2 AT 2L/MIN VIA N/C AND PT TOLERATED WELL. O2 SAT 97%. IV ACCESS ON LT HAND #20G INTACT AND PATENT. NO S/S OF INFILTRATIONS. GTUBE FEEDING WELL TOLERATED WELL. GTUBE FEEDING ON JEVITY AT 60 ML/HR. GORMAN CATHETER IN PLACE. DRAINING BY GRAVITY. NOTED YELLOWISH/CLEAR URINE. NO FACIAL GRIMACING NOTED. BILATERAL RESTRAINT ON PLACE. RELEASED Q 2HOURS TO CHECK CIRCULATIONS. ALL DUE MEDS GIVEN ORDERED. ALL SAFETY MEASURES IN PLACE. BED IN LOWEST POSITION AND LOCKED, SIDE RAILS UP X 3, PLACE CALL LIGHT WITH IN REACH. WILL ENDORSE TO MORNING SHIFT NURSE.
[2022-06-09 07:23] LABS: BASOPHILS % (AUTO) 0.3 % (0.0-2.0); EOSINOPHILS % (AUTO) 2.8 % (0.0-6.0); HEMATOCRIT 46 % (39-51); HEMOGLOBIN 14.4 g/dL (13.5-17.5); LYMPHOCYTES # (AUTO) 1.4 K/uL (0.8-4.8); MEAN CORPUSCULAR HGB CONC 32 g/dl (31.0-36.0); MEAN CORPUSCULAR VOLUME 82 fL (80-96); MONOCYTES # (AUTO) 1.7 K/uL (0.1-1.30); MONOCYTES % (AUTO) 20.7 % (2.0-12.0); NEUTROPHILS # (AUTO) 4.8 K/uL (1.8-8.9); NEUTROPHILS % (AUTO) 59.2 % (43.0-81.0); PLATELET COUNT (AUTO) 271 K/uL (150-450); RED BLOOD CELL COUNT(AUTO) 5.59 MIL/uL (4.5-6.0); WHITE BLOOD COUNT (AUTO) 8.1 K/uL (4.3-11.0)
--- NOTE | 2022-06-09 07:26 | NUR ---
RN OPEN NOTES: PATIENT IN BED, A/O X1, NON VERBAL, OPENS BOTH EYES. BREATHING IS EVEN AND UNLABORED. ON O2 AT 2L/MIN VIA N/C AND PT TOLERATED WELL. O2 SAT 97%. IV ACCESS ON LT HAND #20G INTACT AND PATENT. NO S/S OF INFILTRATIONS. GTUBE FEEDING WELL TOLERATED . GTUBE FEEDING ON JEVITY AT 60 ML/HR. GORMAN CATHETER IN PLACE. DRAINING BY GRAVITY. NOTED YELLOWISH/CLEAR URINE. NO FACIAL GRIMACING NOTED. BILATERAL RESTRAINT ON PLACE. RELEASED Q 2HOURS TO CHECK CIRCULATIONS. ALL SAFETY MEASURES IN PLACE. BED IN LOWEST POSITION AND LOCKED, SIDE RAILS UP X 3, PLACE CALL LIGHT WITH IN REACH. WILL CONTINUE TO FALLOW POC
[2022-06-09 07:56] LABS: CALCIUM, SERUM 9.5 mg/dL (8.5-10.1); CREATININE 0.9 mg/dL (0.6-1.3)
[2022-06-09 08:00] VITALS: BP 151/102
[2022-06-09] MEDS: CALCIUM CARBONATE (1250) 500 MG TABLET GT SCH (08:21)
[2022-06-09] MEDS: clonazePAM 0.5 MG TABLET GT SCH ×2 (08:21→16:42)
[2022-06-09] MEDS: QUETIAPINE FUMARATE 25 MG TABLET GT SCH ×2 (08:21→16:42)
[2022-06-09] MEDS: MULTIVIT W/MINERALS 1 TAB TABLET GT SCH (08:21)
[2022-06-09] MEDS: ESCITALOPRAM OXALATE (10 MG) 10 MG TABLET GT SCH (08:21)
[2022-06-09] MEDS: CHLORHEXIDINE GLUCONATE 15 ML UDC MM SCH ×2 (08:21→20:37)
[2022-06-09] MEDS: CHOLECALCIFEROL 1,000 UNIT TABLET (VIT D3) GT SCH (08:22)
[2022-06-09] MEDS: PANTOPRAZOLE 40 MG/PACK PACK GT SCH (08:22)
[2022-06-09] MEDS: DOCUSATE SODIUM LIQ 100 MG/10 ML UDC GT SCH (08:22)
[2022-06-09] MEDS: FERROUS SULFATE (325 MG) 325 MG/TAB TABLET GT SCH (08:22)
[2022-06-09] MEDS: ENOXAPARIN SODIUM 40 MG/0.4 ML DISP.SYRIN SQ SCH (08:25)
[2022-06-09] MEDS: PROSOURCE / PROSTAT (PYXIS) 30 ML UDC GT SCH ×3 (08:37→16:42)
[2022-06-09] MEDS: LORAZEPAM 1 MG TABLET GT PRN (11:41)
[2022-06-09] MEDS ORDERED: VALPROIC ACID 250 MG/5 ML UDC GT SCH (12:00)
[2022-06-09] MEDS ORDERED: LEVETIRACETAM (500MG) 1,000 MG in IV NS 0.9% 100 ML IV ONE (12:00)
[2022-06-09 12:04] VITALS: BP 145/97
[2022-06-09] MEDS: VALPROIC ACID 250 MG/5 ML UDC GT SCH ×2 (12:29→20:37)
[2022-06-09] MEDS ORDERED: CIPROFLOXACIN HCL 0.3% 5 ML BOTTLE LEFTEYE SCH (13:00)
[2022-06-09] MEDS: CIPROFLOXACIN HCL 0.3% 5 ML BOTTLE LEFTEYE SCH ×3 (13:02→20:39)
[2022-06-09] MEDS: LEVOFLOXACIN 500 MG /D5W 100ML 100 ML IV SCH (13:33)
[2022-06-09] MEDS ORDERED: GUAN1TAB GT (13:48)
[2022-06-09] MEDS ORDERED: LEVE100S GT (13:48)
[2022-06-09] MEDS ORDERED: IBUP-1955 GT (13:48)
[2022-06-09] MEDS ORDERED: ACET-2605 GT (13:48)
[2022-06-09] MEDS ORDERED: CRAN3875 GT (13:48)
[2022-06-09] MEDS ORDERED: VALP250S4 GT (13:48)
[2022-06-09] MEDS ORDERED: BISA10SU11 RC (13:48)
[2022-06-09] MEDS ORDERED: TEST200V3 IM (13:48)
[2022-06-09] MEDS ORDERED: ONDA-97 GT (13:48)
[2022-06-09] MEDS ORDERED: LEVO500T90 PO (14:17)
[2022-06-09] MEDS ORDERED: CIPR5DRO18 LEFTEYE (14:17)
[2022-06-09 16:00] VITALS: BP 130/93
[2022-06-09] MEDS ORDERED: IV NS 0.9% 500 ML IV ONE (16:30)
[2022-06-09] MEDS ORDERED: IV NS 0.9% 1,000 ML IV ONE (18:00)
[2022-06-09] MEDS ORDERED: LORAZEPAM INJ 2 MG/ML VIAL IV PRN (18:00)
[2022-06-09] MEDS ORDERED: LORAZEPAM INJ 2 MG/ML VIAL IV ONE (18:00)
--- NOTE | 2022-06-09 18:56 | NUR ---
RN closing NOTES: PATIENT IN BED, A/O X1, NON VERBAL, OPENS BOTH EYES. BREATHING IS EVEN AND UNLABORED. ON O2 AT 2L/MIN VIA N/C AND PT TOLERATED WELL. O2 SAT 97%. IV ACCESS ON LT HAND #20G INTACT AND PATENT. NO S/S OF INFILTRATIONS. GTUBE FEEDING WELL TOLERATED . GTUBE FEEDING ON JEVITY AT 60 ML/HR. GORMAN CATHETER REMOVED , PATIENT URINATED RIGHT [id number] ML, ORDER FOR GORMAN PRN RECEIVED, OVER THE DAY SHIFT PATIENT HAD MULTIPLE EPISODES OF SEIZURES , DOCTOR NOTIFOED , ORDER FOR 100 CC OF THE ns BOLUS RECEIVED AND RUNNING . CT SCAN IS DONE BILATERAL RESTRAINT ON PLACE. RELEASED Q 2HOURS TO CHECK CIRCULATIONS. ALL SAFETY MEASURES IN PLACE. BED IN LOWEST POSITION AND LOCKED, SIDE RAILS UP X 3, PLACE CALL LIGHT WITH IN REACH.
--- NOTE | 2022-06-09 19:40 | NUR ---
RN NOTES, PATIENT IN BED, A/O X1, NON VERBAL, AWAKE, NO SOB/ACCTE DISTRESS NOTED, OPTIMAL O2 SAT AT ROOM AIR, NO S/S OF ANY PAIN OR DISCOMFORT, NO S/S OF SEIZURES AT THIS TIME, RECEIVING NS BOLUS AT THIS TIME, ATIVAN WAS GIVEN, PATIENT CALM AT THIS TIME, NO EPISODES OF AGITATION, G-TUBE FEEDING ON JEVITY AT 60 ML/HR, BILATERAL SOFT WRIST RESTRAINT ON PLACE, CIRCULATION NOT COMPROMISED, NO ABNORMALITY NOTED A THIS TIME, BED LOCKED AND IN LOWEST POSITION, SIDE RAILS UP X 3, CALL LIGHT W/I REACH, WILL CONTINUE TO MONITOR CLOSELY.
[2022-06-09 20:00] VITALS: BP 135/89
[2022-06-09] MEDS: LEVETIRACETAM SOL (5 ML) 100 MG/ML UDC PO SCH (20:37)
[2022-06-09] MEDS: ACETAMINOPHEN 325 MG TABLET PO PRN (20:38)
[2022-06-10] VITALS: BP 134/84
[2022-06-10] MEDS: BACLOFEN (10 MG) 10 MG TABLET GT SCH ×5 (00:49→23:30)
[2022-06-10 04:00] VITALS: BP 137/89
[2022-06-10] MEDS: VALPROIC ACID 250 MG/5 ML UDC GT SCH ×3 (05:20→20:57)
[2022-06-10 06:07] LABS: BASOPHILS % (AUTO) 0.5 % (0.0-2.0); EOSINOPHILS % (AUTO) 2.2 % (0.0-6.0); HEMATOCRIT 41 % (39-51); HEMOGLOBIN 13.1 g/dL (13.5-17.5); LYMPHOCYTES # (AUTO) 1.3 K/uL (0.8-4.8); LYMPHOCYTES % (AUTO) 16.5 % (20.0-44.0); MEAN CORPUSCULAR HGB CONC 32 g/dl (31.0-36.0); MEAN CORPUSCULAR VOLUME 81 fL (80-96); MONOCYTES # (AUTO) 1.4 K/uL (0.1-1.30); MONOCYTES % (AUTO) 18.3 % (2.0-12.0); NEUTROPHILS # (AUTO) 4.8 K/uL (1.8-8.9); NEUTROPHILS % (AUTO) 62.5 % (43.0-81.0); PLATELET COUNT (AUTO) 224 K/uL (150-450); RED BLOOD CELL COUNT(AUTO) 5.01 MIL/uL (4.5-6.0); WHITE BLOOD COUNT (AUTO) 7.7 K/uL (4.3-11.0)
--- NOTE | 2022-06-10 06:28 | NUR ---
END OF SHIFT, PATIENT AWAKE AT THIS TIME, CONTINUE AT ROOM AIR NO SOB/ACUTE DISTRESS DURING THE NIGHT, MAINTAINED O2 WNL, VITAL SINGS STABLE, NO EPISODES OF SEIZURES DURING THE NIGHT, FEBRILE LAST NIGHT TYLENOL AND COOLING MEASURES PROVIDED, OTHERWISE NO SIGNIFICANT CHANGE IN CONDITION DURING THE NIGHT, CONTINUE ON BILATERAL SOF WRIST RESTRAINS, FREQUENT CHECKS DONE, NO CIRCULATION COMPROMISED AND NO ABNORMALITY AT SITE NOTED, BED LOCKED AND IN LOWEST POSITION, ASSISTED AT ALL TIMES, ALL SAFETY PRECAUTIONS MAINTAINED, CALL LIGHT WITHIN REACH, WILL ENDORSE CONTINUITY OF CARE TO ONCOMING NURSE.
[2022-06-10 07:03] LABS: CALCIUM, SERUM 9.1 mg/dL (8.5-10.1); CREATININE 0.8 mg/dL (0.6-1.3); POTASSIUM 3.4 mmol/L (3.5-5.1)
--- NOTE | 2022-06-10 07:20 | NUR ---
GSA COORDINATOR OPENING NOTE: RECEIVED PATIENT IN BED, A/O X 0, NON-VERBAL. BREATHING EVEN AND UNLABORED. ON RA, NO S/S OF RESPIRATORY DISTRESS. SUPERVISOR FOOD CHECKERS AND CASHIERS READS NSR TO SINUS TACH AT 90-110 BPM. IV ACCESS ON R AC #24G, INTACT AND PATENT. SALINE LOCKED. G-TUBE FEEDING WELL TOLERATED. NO GASTRIC RESIDUAL NOTED, RUNNING JEVITY @60CC/HR. NO FACIAL GRIMACING NOTED. NO ACUTE DISTRESS. ALL SAFETY MEASURES IN PLACE. BED IN LOWEST POSITION AND LOCKED. SIDE RAILS UP X3, CALL LIGHT WITH IN REACH, HOB ELEVATED AT 30 DEGREES. WILL TURN AND REPOSITION Q2H. WILL CONTINUE TO MONITOR PT. FOR ANY CHANGES.
--- NOTE | 2022-06-10 07:33 | NUR ---
WOUND CARE CONSULT: PT PRESENTS WITH SACRAL SCARRING AND HYPERGRANULATION TISSUE TO G TUBE SITE, PRESENT ON ADMISSION. DR CARVAJAL CALLED FOR SURGICAL CONSULT. RECOMMENDATIONS MADE FOR SKIN PROTECTION. DISCUSSED WITH NURSING STAFF. MD IN AGREEMENT WITH PLAN OF CARE.
[2022-06-10 08:00] VITALS: BP 146/97
[2022-06-10] MEDS: ACETYLCYSTEINE 10% SOLN 400 MG/4 ML VIAL NEB SCH ×3 (08:12→23:53)
[2022-06-10] MEDS ORDERED: POTASSIUM CHLORIDE 20 MEQ POWDER PACKET GT SCH (10:00)
[2022-06-10] MEDS: PROSOURCE / PROSTAT (PYXIS) 30 ML UDC GT SCH ×3 (10:12→17:10)
[2022-06-10] MEDS: DOCUSATE SODIUM LIQ 100 MG/10 ML UDC GT SCH (10:12)
[2022-06-10] MEDS: CIPROFLOXACIN HCL 0.3% 5 ML BOTTLE LEFTEYE SCH ×4 (10:12→21:01)
[2022-06-10] MEDS: CHOLECALCIFEROL 1,000 UNIT TABLET (VIT D3) GT SCH (10:12)
[2022-06-10] MEDS: LEVETIRACETAM SOL (5 ML) 100 MG/ML UDC PO SCH ×2 (10:13→20:58)
[2022-06-10] MEDS: clonazePAM 0.5 MG TABLET GT SCH ×2 (10:14→17:10)
[2022-06-10] MEDS: QUETIAPINE FUMARATE 25 MG TABLET GT SCH ×2 (10:14→17:10)
[2022-06-10] MEDS: FERROUS SULFATE (325 MG) 325 MG/TAB TABLET GT SCH (10:14)
[2022-06-10] MEDS: CHLORHEXIDINE GLUCONATE 15 ML UDC MM SCH ×2 (10:14→20:58)
[2022-06-10] MEDS: CALCIUM CARBONATE (1250) 500 MG TABLET GT SCH (10:14)
[2022-06-10] MEDS: MULTIVIT W/MINERALS 1 TAB TABLET GT SCH (10:15)
[2022-06-10] MEDS: ESCITALOPRAM OXALATE (10 MG) 10 MG TABLET GT SCH (10:15)
[2022-06-10] MEDS: PANTOPRAZOLE 40 MG/PACK PACK GT SCH (10:15)
[2022-06-10] MEDS: ENOXAPARIN SODIUM 40 MG/0.4 ML DISP.SYRIN SQ SCH (10:16)
[2022-06-10 12:00] VITALS: BP 107/72
[2022-06-10 12:03] LABS: BASOPHILS % (MANUAL) 0 % (0.0-2.0); EOSINOPHILS % (MANUAL) 3 % (0-4); LYMPHOCYTES % (MANUAL) 15 % (16-48); MONOCYTES % (MANUAL) 17 % (0-11.0); NEUTROPHILS % (MANUAL) 65 (42-76)
[2022-06-10] MEDS: LEVOFLOXACIN 500 MG /D5W 100ML 100 ML IV SCH (13:53)
[2022-06-10 16:00] VITALS: BP 122/83
--- NOTE | 2022-06-10 18:01 | NUR ---
PER SHE CAUTERIZED GTUBE SITE AND OK TO CHANGE DRESSING WITH DRY GAUZE PRN DAILY.
[2022-06-10] MEDS: ACETAMINOPHEN 325 MG TABLET PO PRN (18:30)
[2022-06-10] MEDS: LORAZEPAM 1 MG TABLET GT PRN (18:30)
--- NOTE | 2022-06-10 19:25 | NUR ---
BUSINESS SERVICES TECH CLOSING NOTE: PATIENT REMAINS IN BED, A/O X 0, NON-VERBAL. BREATHING EVEN AND UNLABORED. ON RA, NO S/S OF RESPIRATORY DISTRESS. LEAD ASSISTANT MANAGER READS SINUS TACH/SVT AT 110-129 BPM. ATIVAN AND TYLENOL GIVEN AT 1830. WILL CONTINUE TO MONITOR HEART RATE. IV ACCESS ON R AC #24G, INTACT AND PATENT. SALINE LOCKED. G-TUBE FEEDING WELL TOLERATED. NO GASTRIC RESIDUAL NOTED, RUNNING JEVITY @60CC/HR. ALL SAFETY MEASURES MAINTAINED. BED IN LOWEST POSITION AND LOCKED. SIDE RAILS UP X3, CALL LIGHT WITH IN REACH, HOB ELEVATED AT 30 DEGREES. TURNED AND REPOSITIONED Q2H. WILL ENDORSE CONTINUITY OF CARE TO DAIRY HUSBANDRY TEACHER RN.
[2022-06-10 20:00] VITALS: BP 125/85
[2022-06-10] MEDS: JEVITY 1.2 CAL 1,000 ML BOTTLE GT PRN (23:29)
[2022-06-11] VITALS: BP 101/65
[2022-06-11 04:00] VITALS: BP 120/82
[2022-06-11] MEDS: VALPROIC ACID 250 MG/5 ML UDC GT SCH ×3 (05:26→20:54)
[2022-06-11] MEDS: BACLOFEN (10 MG) 10 MG TABLET GT SCH ×3 (05:26→17:10)
--- NOTE | 2022-06-11 07:01 | NUR ---
END OF SHIFT, PATIENT AWAKE AT THIS TIME, CONTINUE AT ROOM AIR NO SOB/ACUTE DISTRESS DURING THE NIGHT, MAINTAINED O2 WNL, VITAL SINGS STABLE, NO EPISODES OF SEIZURES DURING THE NIGHT, OTHERWISE NO SIGNIFICANT CHANGE IN CONDITION DURING THE NIGHT, CONTINUE ON BILATERAL SOF WRIST RESTRAINS, FREQUENT CHECKS DONE, NO CIRCULATION COMPROMISED AND NO ABNORMALITY AT SITE NOTED, CLEARED FOR DISCHARGE, AWAITING FOR JAGDEEP GOMEZ ON THE CASE, BED LOCKED AND IN LOWEST POSITION, ALL SAFETY PRECAUTIONS MAINTAINED, CALL LIGHT WITHIN REACH, WILL ENDORSE CONTINUITY OF CARE TO ONCOMING NURSE.
[2022-06-11 07:07] LABS: BASOPHILS % (AUTO) 0.6 % (0.0-2.0); EOSINOPHILS % (AUTO) 3.8 % (0.0-6.0); HEMATOCRIT 42 % (39-51); HEMOGLOBIN 13.3 g/dL (13.5-17.5); LYMPHOCYTES # (AUTO) 1.1 K/uL (0.8-4.8); MEAN CORPUSCULAR HGB CONC 32 g/dl (31.0-36.0); MEAN CORPUSCULAR VOLUME 82 fL (80-96); MONOCYTES % (AUTO) 17.2 % (2.0-12.0); NEUTROPHILS # (AUTO) 3.6 K/uL (1.8-8.9); NEUTROPHILS % (AUTO) 59.4 % (43.0-81.0); PLATELET COUNT (AUTO) 223 K/uL (150-450); RED BLOOD CELL COUNT(AUTO) 5.14 MIL/uL (4.5-6.0)
[2022-06-11 07:38] LABS: CALCIUM, SERUM 9.3 mg/dL (8.5-10.1); CREATININE 0.8 mg/dL (0.6-1.3); POTASSIUM 3.7 mmol/L (3.5-5.1)
--- NOTE | 2022-06-11 07:39 | NUR ---
HARPOONER CLOSING NOTE: PATIENT REMAINS IN BED, A/O X 0, NON-VERBAL. BREATHING EVEN AND UNLABORED. ON RA, NO S/S OF RESPIRATORY DISTRESS. PLATE MILL MILL HAND READS SINUS TACH/SVT AT 110-129 BPM. ATIVAN AND TYLENOL GIVEN AT 1830. WILL CONTINUE TO MONITOR HEART RATE. IV ACCESS ON R AC #24G, INTACT AND PATENT. SALINE LOCKED. G-TUBE FEEDING WELL TOLERATED. NO GASTRIC RESIDUAL NOTED, RUNNING JEVITY @60CC/HR. ALL SAFETY MEASURES MAINTAINED. BED IN LOWEST POSITION AND LOCKED. SIDE RAILS UP X3, CALL LIGHT WITH IN REACH, HOB ELEVATED AT 30 DEGREES. TURNED AND REPOSITIONED Q2H. WILL CONTINUE TO FALLOW PLAN OF CARE
[2022-06-11 08:00] VITALS: BP 130/88
[2022-06-11] MEDS: ACETYLCYSTEINE 10% SOLN 400 MG/4 ML VIAL NEB SCH ×2 (08:05→15:30)
[2022-06-11] MEDS: CALCIUM CARBONATE (1250) 500 MG TABLET GT SCH (08:48)
[2022-06-11] MEDS: DOCUSATE SODIUM LIQ 100 MG/10 ML UDC GT SCH (08:48)
[2022-06-11] MEDS: LEVETIRACETAM SOL (5 ML) 100 MG/ML UDC PO SCH ×2 (08:48→20:53)
[2022-06-11] MEDS: FERROUS SULFATE (325 MG) 325 MG/TAB TABLET GT SCH (08:48)
[2022-06-11] MEDS: ESCITALOPRAM OXALATE (10 MG) 10 MG TABLET GT SCH (08:48)
[2022-06-11] MEDS: CHOLECALCIFEROL 1,000 UNIT TABLET (VIT D3) GT SCH (08:48)
[2022-06-11] MEDS: LORAZEPAM 1 MG TABLET GT PRN ×2 (08:49→08:50)
[2022-06-11] MEDS: clonazePAM 0.5 MG TABLET GT SCH ×2 (08:49→17:10)
[2022-06-11] MEDS: CHLORHEXIDINE GLUCONATE 15 ML UDC MM SCH ×2 (08:49→20:53)
[2022-06-11] MEDS: PANTOPRAZOLE 40 MG/PACK PACK GT SCH (08:52)
[2022-06-11] MEDS: ENOXAPARIN SODIUM 40 MG/0.4 ML DISP.SYRIN SQ SCH (08:54)
[2022-06-11] MEDS: QUETIAPINE FUMARATE 25 MG TABLET GT SCH ×2 (08:59→17:10)
[2022-06-11] MEDS: MULTIVIT W/MINERALS 1 TAB TABLET GT SCH (08:59)
[2022-06-11] MEDS: CIPROFLOXACIN HCL 0.3% 5 ML BOTTLE LEFTEYE SCH ×4 (09:01→20:54)
--- NOTE | 2022-06-11 10:07 | NUR ---
YING FRANCISCO CALLED TO THE [facility] WITH THE REQUEST FOR COVID RECORD , SPOKE TO THE NURS LEILA , STATED THAT WILL FAX IT TI THE DON , FAX NUMBER PROVIDED
[2022-06-11] MEDS: PROSOURCE / PROSTAT (PYXIS) 30 ML UDC GT SCH ×3 (10:10→17:11)
[2022-06-11 11:44] LABS: BASOPHILS % (MANUAL) 0 % (0.0-2.0); EOSINOPHILS % (MANUAL) 2 % (0-4); LYMPHOCYTES % (MANUAL) 20 % (16-48); MONOCYTES % (MANUAL) 18 % (0-11.0); NEUTROPHILS % (MANUAL) 60 (42-76)
[2022-06-11 12:00] VITALS: BP 102/70
--- NOTE | 2022-06-11 14:21 | NUR ---
RN NOTE PATIENT IS AT STABLE CONDITION , DISCHARGE INSTRUCTIONS WERE PROVIDEDTO THE PATIENTS MOTHER , MOTHER VERBALIZED UNDERSTANDING , WRITTEN INSTRUCTIONS PROVIDED TO THE MOTHER AND EMT . PATIENT DISCHARGED FROM [facility]
[2022-06-11] MEDS: LEVOFLOXACIN 500 MG /D5W 100ML 100 ML IV SCH (14:30)
--- NOTE | 2022-06-11 16:46 | NUR ---
RN note . Patient was readmitted back due to tachycardia 122 SR. RESUMED Jevety ay 60 ml/hr VIA G TUBE .PATIENT IS PN ROOM AIR , 02 SAT 96% SRATED PERIPHERAL LINE ON THE RIGHT WRIST 22 G TKO 10 ML/HR , PATIENT IS IN DIAPER , URINARY /BOWEL INCONTINENT.WILL RESUME PLAN OD CARE
[2022-06-11] MEDS: ALPRAZOLAM 0.25 MG TABLET PO SCH (17:10)
[2022-06-11 17:15] VITALS: BP 102/70
--- NOTE | 2022-06-11 19:20 | NUR ---
MEDICAL MASSAGE THERAPIST CLOSING NOTE: PATIENT REMAINS IN BED, A/O X 0, NON-VERBAL. BREATHING EVEN AND UNLABORED. ON RA, NO S/S OF RESPIRATORY DISTRESS. BODY PRESSER READS SINUS TACH/SVT AT 110-129 BPM. IV ACCESS ON R WRIST 22 G, INTACT AND PATENT. SALINE LOCKED. G-TUBE FEEDING WELL TOLERATED. NO GASTRIC RESIDUAL NOTED, RUNNING JEVITY @60CC/HR. ALL SAFETY MEASURES MAINTAINED. BED IN LOWEST POSITION AND LOCKED. SIDE RAILS UP X3, CALL LIGHT WITH IN REACH, HOB ELEVATED AT 30 DEGREES. TURNED AND REPOSITIONED Q2H. WILL CONTINUE TO FALLOW PLAN OF CARE
--- NOTE | 2022-06-11 19:30 | NUR ---
BPO SPECIALIST OPENING NOTE RECEIVED PATIENT IN BED, A/O X 0, NON-VERBAL. ON RA, BREATHING EVEN AND UNLABORED. TOLERATING WELL, NO S/S OF RESPIRATORY DISTRESS. TELE MONITOR READS ST. IV ACCESS ON R WRIST 22 G, INTACT AND PATENT. SALINE LOCKED. G-TUBE RUNNING JEVITY @60ML. NO GASTRIC RESIDUAL NOTED, ALL SAFETY MEASURES MAINTAINED. BED IN LOWEST POSITION AND LOCKED. SIDE RAILS UP X3, CALL LIGHT WITH IN REACH, HOB ELEVATED AT 30 DEGREES. . WILL CONTINUE TO MONITOR
[2022-06-11 20:00] VITALS: BP 147/91
[2022-06-12] VITALS: BP 134/78
[2022-06-12] MEDS: BACLOFEN (10 MG) 10 MG TABLET GT SCH ×4 (00:01→17:50)
[2022-06-12 04:00] VITALS: BP 128/82
[2022-06-12] MEDS: VALPROIC ACID 250 MG/5 ML UDC GT SCH ×2 (05:05→12:10)
--- NOTE | 2022-06-12 06:46 | NUR ---
SPA MANAGER CLOSING NOTE: PATIENT IN BED, A/O X 0, NON-VERBAL. ON RA, BREATHING EVEN AND UNLABORED. TOLERATING WELL, NO S/S OF RESPIRATORY DISTRESS. TELE MONITOR READS ST. IV ACCESS ON R WRIST 22 G, INTACT AND PATENT. SALINE LOCKED. G-TUBE INTACT AND PATENT. NOT RUNNING. NO GASTRIC RESIDUAL NOTED. CONDOM CATH DRAINING CLEAR YELLOW URINE.ALL DUE MEDS GIVEN. ALL SAFETY MEASURES MAINTAINED. BED IN LOWEST POSITION AND LOCKED. SIDE RAILS UP X3, CALL LIGHT WITH IN REACH, HOB ELEVATED AT 30 DEGREES. PATIENT TURNED AND REPOSITION Q2H. WILL ENDORSE TO MORNING SHIFT.
--- NOTE | 2022-06-12 07:17 | NUR ---
ENERGY ANALYST OPENING NOTE RECEIVED PATIENT IN BED, A/O X 0, NON-VERBAL. OPENS EYES AND NODS WHEN ASKED QUESTIONS ON RA, BREATHING EVEN AND UNLABORED. TOLERATING WELL, NO S/S OF RESPIRATORY DISTRESS. TELE MONITOR . IV ACCESS ON R WRIST 22 G, INTACT AND PATENT. SALINE LOCKED. ALL SAFETY MEASURES MAINTAINED. BED IN LOWEST POSITION AND LOCKED. SIDE RAILS UP X3, CALL LIGHT WITH IN REACH, HOB ELEVATED AT 30 DEGREES.
[2022-06-12 08:00] VITALS: BP 128/79
[2022-06-12] MEDS: LEVETIRACETAM SOL (5 ML) 100 MG/ML UDC PO SCH (08:56)
[2022-06-12] MEDS: CHOLECALCIFEROL 1,000 UNIT TABLET (VIT D3) GT SCH (08:56)
[2022-06-12] MEDS: QUETIAPINE FUMARATE 25 MG TABLET GT SCH ×2 (08:56→17:50)
[2022-06-12] MEDS: clonazePAM 0.5 MG TABLET GT SCH ×2 (08:56→17:50)
[2022-06-12] MEDS: DOCUSATE SODIUM LIQ 100 MG/10 ML UDC GT SCH (08:56)
[2022-06-12] MEDS: PANTOPRAZOLE 40 MG/PACK PACK GT SCH (08:56)
[2022-06-12] MEDS: CHLORHEXIDINE GLUCONATE 15 ML UDC MM SCH (08:56)
[2022-06-12] MEDS: ESCITALOPRAM OXALATE (10 MG) 10 MG TABLET GT SCH (08:56)
[2022-06-12] MEDS: MULTIVIT W/MINERALS 1 TAB TABLET GT SCH (08:56)
[2022-06-12] MEDS: CALCIUM CARBONATE (1250) 500 MG TABLET GT SCH (08:56)
[2022-06-12] MEDS: FERROUS SULFATE (325 MG) 325 MG/TAB TABLET GT SCH (08:56)
[2022-06-12] MEDS: ALPRAZOLAM 0.25 MG TABLET PO SCH ×2 (08:56→17:50)
[2022-06-12] MEDS: ENOXAPARIN SODIUM 40 MG/0.4 ML DISP.SYRIN SQ SCH (08:59)
[2022-06-12] MEDS: JEVITY 1.2 CAL 1,000 ML BOTTLE GT PRN (08:59)
[2022-06-12] MEDS: CIPROFLOXACIN HCL 0.3% 5 ML BOTTLE LEFTEYE SCH ×3 (09:00→17:51)
[2022-06-12] MEDS: PROSOURCE / PROSTAT (PYXIS) 30 ML UDC GT SCH ×3 (09:00→17:50)
[2022-06-12 12:00] VITALS: BP 124/77
--- NOTE | 2022-06-12 14:19 | NUR ---
RN NOTE 0900,1300 CIPRO EYE DROPS NOT ADMIN DUE TO PHARMACY NOT HAVING MEDICATION
[2022-06-12] MEDS: LEVOFLOXACIN 500 MG /D5W 100ML 100 ML IV SCH (15:37)
[2022-06-12 16:00] VITALS: BP 115/74
[2022-06-12] MEDS: LORAZEPAM 1 MG TABLET GT PRN (17:50)
--- NOTE | 2022-06-12 19:02 | NUR ---
ASSOCIATE COUNSEL CLOSING NOTE: PATIENT IN BED, A/O X 0, NON-VERBAL. ON RA, BREATHING EVEN AND UNLABORED. TOLERATING WELL, NO S/S OF RESPIRATORY DISTRESS. TELE MONITOR READS ST. IV ACCESS ON R WRIST 22 G, INTACT AND PATENT. SALINE LOCKED. G-TUBE INTACT AND PATENT. NOT RUNNING. NO GASTRIC RESIDUAL NOTED. CONDOM CATH DRAINING CLEAR YELLOW URINE.ALL DUE MEDS GIVEN. ALL SAFETY MEASURES MAINTAINED. BED IN LOWEST POSITION AND LOCKED. SIDE RAILS UP X3, CALL LIGHT WITH IN REACH, HOB ELEVATED AT 30 DEGREES. PATIENT TURNED AND REPOSITION Q2H. PATIENT IS TO BEE D/C AUDIO TAPE LIBRARIAN TIME 1900
--- NOTE | 2022-06-12 19:03 | NUR ---
RN NOTE REPORT CALLED TO MALIA PAREKH
--- NOTE | 2022-06-12 19:26 | NUR ---
RN NOTE PATIENT TAKEN BY EMT IN STABLE CONDITION
== END 2022-06-12 20:44 | DRG 205 ==
LOC: ER 09:05 → TRANSITION 14:22 → TELE1 20:35 → TELE-TD 20:41 → TELE1 06-07 11:51 → UNDODISIN 06-11 14:10
PROVIDERS: ADMIT Nurse Practitioner Acute Care; ATTEND Nurse Practitioner Acute Care
DX: J95.09 Other tracheostomy complication (principal); G93.41 Metabolic encephalopathy; J96.21 Acute and chronic respiratory failure with hypoxia; N18.6 End stage renal disease; G93.1 Anoxic brain damage, not elsewhere classified; D68.59 Other primary thrombophilia; E44.0 Moderate protein-calorie malnutrition; R73.9 Hyperglycemia, unspecified; Z20.822 Contact with and (suspected) exposure to COVID-19; Z79.51 Long term (current) use of inhaled steroids; Z79.899 Other long term (current) drug therapy; F19.11 Other psychoactive substance abuse, in remission; F09 Unspecified mental disorder due to known physiological condition; R13.10 Dysphagia, unspecified; Z74.01 Bed confinement status; Y84.8 Other medical procedures as the cause of abnormal reaction of the patient, or of later complication, without mention of misadventure at the time of the procedure; Y92.129 Unspecified place in nursing home as the place of occurrence of the external cause; F91.9 Conduct disorder, unspecified; E88.09 Other disorders of plasma-protein metabolism, not elsewhere classified; Z87.820 Personal history of traumatic brain injury; G40.901 Epilepsy, unspecified, not intractable, with status epilepticus; E04.1 Nontoxic single thyroid nodule; J40 Bronchitis, not specified as acute or chronic
CPT/HCPCS: 36415; 70450-TC; 70490-TC; 71045-TC; 80048-TC; 80061-TC; 80076-TC; 81001; 83605-TC; 83735-TC; 84100-TC; 85025-TC; 87040-TC; 87081-TC; 87086-TC; 94799-TC; 97110-TC; 97112-TC; 97530-TC; A4349; C9803; G0378; J1650; J1953; J1956; J2060; J7030; J7040; J7050; Q9967; U0003